=== PATIENT | male | born 1960 | race African-American/Black ===

== ENCOUNTER 2020-05-10 11:13 | Outpatient (REF) | payer OTHER, SELFPAY ==
--- NOTE | 2020-05-10 11:23 | XR_ITS ---
EXAMINATION: XR HIP, RIGHT CLINICAL INFORMATION: Pain COMPARISON: 11/10/2016 TECHNIQUE: Pelvis, AP view Right hip, 2 views FINDINGS: No new findings at the right hip compared to 11/10/2016. The femoral head is well-positioned within the intact acetabulum. There is chronic narrowing of superior joint space with subarticular sclerosis and osteophyte formation. A well-corticated ossicle is observed at the superolateral acetabulum. No evidence of acute fracture or osteonecrosis. Small enthesophytes at the right ischial tuberosity. The visualized right pelvic bones are intact. XR/XR hip RT w PEL1V IMPRESSION: Moderate osteoarthritis of the right hip remains similar in appearance compared to 11/10/2016.
[2020-05-10 12:36] LABS: MANUAL DIFF FLAG NO
[2020-05-10 12:44] LABS: Basophils Percent Auto 0.8 % (0-2); Eosinophils Absolute Auto 0.2 X10*3/uL (0.0-0.4); Eosinophils Percent Auto 3.9 % (0-4); Hematocrit 41.6 % (42-52); Hemoglobin 14.5 g/dl (14.0-18.0); Imm Gran Abs Auto 0.01 X10*3/uL (0.00-0.03); Imm Gran Pct Auto 0.2 % (0.0-0.4); Lymphocytes Absolute Auto 1.8 X10*3/uL (1.2-4.9); Lymphocytes Percent Auto 38.1 % (20-40); Mean Corpuscular HGB Conc 34.9 g/dl (31.0-36.0); Mean Platelet Volume 8.7 fL (9.4-12.4); Monocytes Absolute Auto 0.5 X10*3/uL (0.1-1.2); Monocytes Percent Auto 10.1 % (2-11); Neutrophils Absolute Auto 2.3 X10*3/uL (2.0-8.3); Neutrophils Percent Auto 46.9 % (45-73); Platelet Count 295 X10*3/uL (160-400); Red Blood Count 4.84 X10*6/uL (4.60-5.80); Red Cell Distribution Width 11.6 % (11.0-16.0); White Blood Count 4.8 X10*3/uL (4.8-10.8)
[2020-05-10 13:04] LABS: C Reactive Protein 0.38 mg/dL (< or = 0.50)
[2020-05-10 13:49] LABS: Anion Gap 13 (12-20); Blood Urea Nitrogen 14 mg/dL (9-16); Calcium 9.1 mg/dL (8.4-10.2); Carbon Dioxide 25 mmol/L (22-29); Chloride 104 mmol/L (96-108); Cholesterol 228 mg/dL; Estimated Glomerular Filt Rate > 60; Glucose Fasting 85 mg/dL (60-99); HDL Cholesterol 60 mg/dL; LDL Cholesterol Calculated 146 mg/dl; Potassium 4.4 mmol/l (3.3-5.1); Sodium 138 mmol/L (135-145); Triglycerides 113 mg/dL
[2020-05-11 09:07] LABS: Lyme Abs Screen <0.90 index
== END 2020-05-10 11:14 | disposition home or self-care (01) ==
LOC: HO.LAB 11:13
PROVIDERS: Absent Provider Nurse Practitioner Family; PCP Internal Medicine; Visit Provider Internal Medicine
DX: M54.5 Low back pain (principal)
CPT/HCPCS: 36415; 73502; 80048; 80061; 85025; 86140; 86618

== ENCOUNTER 2020-05-23 13:02 | Outpatient (REF) | payer OTHER, SELFPAY ==
--- NOTE | 2020-05-23 13:05 | US_ITS ---
EXAMINATION: US SCROTUM CLINICAL INFORMATION: Testicular pain. COMPARISON: None TECHNIQUE: A sonogram of the scrotum was performed assessing clayton-scale appearance and color Doppler flow. Spectral Doppler analysis of the arterial and venous flow were performed in the testes bilaterally. FINDINGS: RIGHT: Right testicle measures 4.7 x 2.3 x 3.0 cm, volume 17.0 mL. No focal testicular parenchymal lesions are visualized. Spectral Doppler analysis of the arterial and venous flow is increased in the right testis. Right epididymal head is normal in size. No right varicocele is seen. There is a small right hydrocele. Right epididymal Doppler flow is normal. In the anterior scrotal wall, there is a mobile isoechoic lesion with increased vascularity measuring 0.66 x 0.45 x 0.56 cm. LEFT: Left testicle measures 4.8 x 2.1 x 2.9 cm, volume 15.3 mL. No focal testicular parenchymal lesions are visualized. Spectral Doppler analysis of the arterial and venous flow is increased in the left testis. Left epididymal head is normal in size. There is a small epididymal tail cyst measuring 0.7 x 0.5 x 0.7 cm. There is a small left hydrocele. No left varicocele is seen. Left epididymal Doppler flow is normal. ADDITIONAL FINDINGS: None. US/US scrotum IMPRESSION: Bilateral hydroceles. Small left epididymal cyst. In the anterior scrotal wall, there is an isoechoic to hyperechoic lesion likely epididymal inclusion cyst, less likely leiomyoma. Mesenchymal tumors, hemangioma or lymphangioma are considered less likely.
== END 2020-05-23 13:03 | disposition home or self-care (01) ==
LOC: HO.HMGCX 13:02
PROVIDERS: PCP Internal Medicine; Visit Provider Internal Medicine
DX: N50.819 Testicular pain, unspecified (principal)
CPT/HCPCS: 76870

== ENCOUNTER → 2020-06-19 13:44 | Outpatient (BNVA) | payer OTHER, SELFPAY | PROVIDERS: PCP Internal Medicine; Visit Provider Orthopaedic Surgery ==

== ENCOUNTER 2020-08-06 14:34 | Outpatient (REF) | payer OTHER, SELFPAY ==
--- NOTE | 2020-08-06 15:29 | ECG_ITS ---
Test Reason : PREOP Blood Pressure : / mmHG Vent. Rate : 079 BPM Atrial Rate : 079 BPM P-R Int : 154 ms QRS Dur : 096 ms QT Int : 360 ms P-R-T Axes : 036 044 029 degrees QTc Int : 412 ms Normal sinus rhythm Normal ECG No previous ECGs available Referred By: Karla Chery Electronically Signed By:Diego Llanes
[2020-08-06 16:15] LABS: MANUAL DIFF FLAG NO
[2020-08-06 16:28] LABS: Basophils Absolute Auto 0.1 X10*3/uL (0.0-0.2); Basophils Percent Auto 0.9 % (0-2); Eosinophils Absolute Auto 0.2 X10*3/uL (0.0-0.4); Eosinophils Percent Auto 2.9 % (0-4); Hematocrit 40.4 % (42-52); Hemoglobin 14.1 g/dl (14.0-18.0); Imm Gran Abs Auto 0.01 X10*3/uL (0.00-0.03); Imm Gran Pct Auto 0.2 % (0.0-0.4); Lymphocytes Absolute Auto 1.9 X10*3/uL (1.2-4.9); Lymphocytes Percent Auto 28.5 % (20-40); Mean Corpuscular HGB Conc 34.9 g/dl (31.0-36.0); Mean Corpuscular Hemoglobin 29.7 pg (27.0-33.0); Mean Corpuscular Volume 85.2 fL (80-98); Mean Platelet Volume 8.7 fL (9.4-12.4); Monocytes Absolute Auto 0.7 X10*3/uL (0.1-1.2); Monocytes Percent Auto 10.5 % (2-11); Neutrophils Absolute Auto 3.8 X10*3/uL (2.0-8.3); Platelet Count 310 X10*3/uL (160-400); Red Blood Count 4.74 X10*6/uL (4.60-5.80); Red Cell Distribution Width 11.6 % (11.0-16.0); White Blood Count 6.6 X10*3/uL (4.8-10.8)
[2020-08-06 16:43] LABS: Anion Gap 13 (12-20); Blood Urea Nitrogen 19 mg/dL (9-16); Calcium 9.4 mg/dL (8.4-10.2); Carbon Dioxide 29 mmol/L (22-29); Chloride 105 mmol/L (96-108); Estimated Glomerular Filt Rate > 60; Glucose Random 92 mg/dL (60-115); Sodium 143 mmol/L (135-145)
== END 2020-08-06 14:35 | disposition home or self-care (01) ==
LOC: HO.LAB 14:34
PROVIDERS: PCP Internal Medicine; Visit Provider Orthopaedic Surgery
DX: Z01.810 Encounter for preprocedural cardiovascular examination (principal); Z01.812 Encounter for preprocedural laboratory examination
CPT/HCPCS: 36415; 80048; 85025; 93005

== ENCOUNTER → 2020-08-29 13:59 | Outpatient (BNVA) | payer OTHER, SELFPAY | PROVIDERS: PCP Internal Medicine; Visit Provider Physician Assistant ==

== ENCOUNTER 2020-09-03 09:44 | Inpatient (IN) | payer OTHER, SELFPAY ==
[2020-08-30 09:52] VITALS: BMI 32.4
[2020-08-30 10:12] VITALS: BP 170/105; PULSE 83; RESP 20; O2SAT 99
--- NOTE | 2020-08-30 10:22 | P.CONAN_ITS ---
Documented by User: Maribel Amadoney 08/30/20 10:42 HPI - Anesthesia Eval Consult details Narrative: 60yo M for Right Hip Total Replacement BP up at PAT. Pt states white coat sydrome and BP WNL when checking at home. (Repeat BP 166/96). Admits he has not been taking his Lisinopril 10mg daily regularly. Instructed to take today, Thursday, Thursday, and Thursday. Also, record BP checks at home and bring readings DOS. PCP cleared. [facility] Active Problems Active Problems: All Active Problems (Updated 08/29/20 @ 15:51 by Aliza Camargo) Rash and other nonspecific skin eruption (Acute) Testicle pain (Acute) Sciatica (Acute) Hip arthritis (Acute) Primary osteoarthritis of right hip (Acute) Pre-op evaluation (Acute) Lumbar back pain (Acute) Hypertension (Acute) Asthma (Acute) Past Medical History Medical History (Updated 08/29/20 @ 15:51 by Aliza Camargo) Arthritis Asthma History of back pain Hypertension Lumbar back pain Family History Family History Father No problems noted. Mother No problems noted. Family history of problems with anesthesia: No Surgical History Surgical History (Updated 08/29/20 @ 15:51 by Aliza Camargo) History of amputation of finger of left hand History of left hip replacement History of rectal polypectomy Hx of colonoscopy History of Problems with Anesthesia: No Social History Social History Are you a primary team primary care physician to a significant other at home: No Do you presently have visiting nurse or other home services: No Alcohol intake: never Smoking Status: Never smoker Use of substances other than those prescribed or required for medical reasons: No Have you been hit, kicked, punched, or otherwise hurt by someone within the past year? If so, by whom?: No Advance Directives: No Advance Directives Information Provided: No Advance Directives on File: No Recently lost weight without trying: No Narrative Narrative: No recent illness. 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 Meds Allergies Allergy/AdvReac Type Severity Reaction Status Date / Time No Known Allergies Allergy Verified 08/29/20 15:52 [No Known Allergies*] Home Medications Medication Instructions Recorded Confirmed Last Taken Type oxycodone 5 mg PO Q8H PRN 08/29/20 08/29/20 Unknown History lisinopril 10 mg PO DAILY 08/30/20 08/30/20 Unknown History Exam Exam Date and Time: August 30, 2020 1022 Height,Weight and Vital Signs: Height 5 ft 6 in Weight 91.172 kg Last Vital Signs Pulse 83 08/30/20 10:12 Resp 20 08/30/20 10:12 BP 170/105 H 08/30/20 10:12 Pulse Ox 99 08/30/20 10:12 Pertinent Lab Results Pertinent Lab Results: Laboratory Tests 08/06/20 08/06/20 15:48 15:48 WBC 6.6 Hgb 14.1 Hct 40.4 L Plt Count 310 Sodium 143 Potassium 4.0 Chloride 105 Carbon Dioxide 29 BUN 19 H Creatinine 0.89 Airway Mallampati Class: II TM Dist: >3cm Neck ROM: Full Loose/Missing/Broken Teeth: Yes (Top left molar temporary crown) Heart: RRR Lungs: CTAB Assessment and Plan Assessment Anesthesia Assessment: Anesthesia Plan Discussed (GA vs Spinal; Block) and PAT Visit Documented by User: Kemal Fernandez MD 09/03/20 11:32 [facility] Past Medical History Medical History (Updated 08/29/20 @ 15:51 by Aliza Camargo) Arthritis Asthma History of back pain Hypertension Lumbar back pain Family History Family History Father No problems noted. Mother No problems noted. Surgical History Surgical History (Updated 08/29/20 @ 15:51 by Aliza Camargo) History of amputation of finger of left hand History of left hip replacement History of rectal polypectomy Hx of colonoscopy Social History Social History Are you a primary team primary care physician to a significant other at home: No Do you presently have visiting nurse or other home services: No Alcohol intake: never Smoking Status: Never smoker Use of substances other than those prescribed or required for medical reasons: No Have you been hit, kicked, punched, or otherwise hurt by someone within the past year? If so, by whom?: No Advance Directives: No Advance Directives Information Provided: No Advance Directives on File: No Recently lost weight without trying: No Meds Allergies Allergy/AdvReac Type Severity Reaction Status Date / Time No Known Allergies Allergy Verified 08/29/20 15:52 [No Known Allergies*] Home Medications Medication Instructions Recorded Confirmed Last Taken Type oxycodone 5 mg PO Q8H PRN 08/29/20 08/29/20 Unknown History lisinopril 10 mg PO DAILY 08/30/20 08/30/20 Unknown History Assessment and Plan Assessment Anesthesia Assessment: Anesthesia Plan Discussed and Chart Reviewed Final Anesthetic Review NPO: Yes ASA Class: III Final Preanesthetic Review: No Changes in Pt Med Stat, Meds/Allgs Chart Reviewed, Consent Obtained/Reviewed and Anes Risks/Benef Reviewed Patient Risk: Intermediate Procedure Risk: Intermediate Anesthetic Plan Anesthetic Plan: MAC:, Spinal and Regional Block Disposition: Standard PACU
[2020-08-30 10:35] VITALS: BP 166/96; PULSE 82; O2SAT 99
[2020-08-30 12:41] LABS: MRSA Nasal PCR NEGATIVE (Negative); SA Nasal PCR POSITIVE (Negative)
[2020-09-03] VITALS (17 sets, daily range): BP systolic 116–201; BP diastolic 65–125; PULSE 54–84; RESP 14–20; TEMP 36.6–36.7; O2SAT 93–99
--- NOTE | ~2020-09-03 | XR_ITS ---
EXAMINATION: XR HIP, RIGHT CLINICAL INFORMATION: Postop COMPARISON: Previous x-ray May 2020 TECHNIQUE: Two views of the right hip and one view of the pelvis. FINDINGS: There is a new right hip replacement in satisfactory position. No fracture or dislocation is seen. There are postoperative changes to the soft tissues. There is a left hip replacement, left lateral femoral shaft sideplate and cerclage wires that appear unchanged. Bones of the lower pelvis are unremarkable. XR/XR hip RT w PEL1V IMPRESSION: Satisfactory appearance of right hip replacement.
--- NOTE | 2020-09-03 07:35 | MHC.SHP ---
Pre-Procedural Eval Section A The patient is an INPATIENT: No Changes since office visit: No Cold of Flu in the past 2 weeks, No New Medical Problems, No Changes in Medication and No Patient answered all questions The History & Physical has been completed within 30 days and I have reviewed it.: Yes Section B Chief Complaint: Primary Osteoarthritis of Right Hip Allergies: Allergies Allergy/AdvReac Type Severity Reaction Status Date / Time No Known Allergies Allergy Verified 08/29/20 15:52 [No Known Allergies*] Plan I have reviewed the history and physical and performed a pertinent physical examination on my patient. No changes have occurred unless specified.
[2020-09-03] MEDS: Gabapentin 600 MG TABLET PO (10:33)
[2020-09-03 10:52] LABS: COVID-19 Test Negative (Negative)
[2020-09-03] MEDS: Lactated Ringers 1,000 ML 100 ML IVCONT ×2 (11:10→15:31)
[2020-09-03] MEDS: HYDROmorphone HCl 0.5 MG/0.5 ML SYRINGE IVPUSH ×2 (14:35→15:19)
[2020-09-03] MEDS: oxyCODONE HCl Immed Release 5 MG TABLET 10 MG PO ×2 (14:42→21:54)
[2020-09-03] MEDS: ceFAZolin Sodium/Dextrose,Iso 2 GM/50 ML PIGGYBACK IV (17:48)
[2020-09-03] MEDS: Ketorolac Tromethamine 15 MG/ML VIAL IVPUSH (18:47)
--- NOTE | 2020-09-03 18:55 | PC.NURSE ---
patient offered dinner meal. ate dinner no complaints of nausea. no pain at this time. vss
[2020-09-03] MEDS: Cyclobenzaprine HCl 10 MG TABLET PO (21:53)
[2020-09-03] MEDS: Acetaminophen 325 MG TABLET 650 MG PO (21:54)
[2020-09-04] VITALS: BP 139/82; PULSE 83; RESP 20; TEMP 37.3; O2SAT 96
[2020-09-04] MEDS: Ketorolac Tromethamine 15 MG/ML VIAL IVPUSH ×3 (00:56→11:56)
[2020-09-04] MEDS: 0.9 % Sodium Chloride Flush 3 ML SYRINGE IVFLUSH ×2 (00:57→08:04)
[2020-09-04] MEDS: Lactated Ringers 1,000 ML 100 ML IVCONT (00:57)
[2020-09-04] MEDS: oxyCODONE HCl Immed Release 5 MG TABLET 10 MG PO ×2 (02:11→08:01)
[2020-09-04 03:47] VITALS: BP 125/77; PULSE 90; RESP 20; TEMP 37.4; O2SAT 95
[2020-09-04] MEDS: Acetaminophen 325 MG TABLET 650 MG PO ×2 (03:49→08:18)
[2020-09-04 06:22] LABS: Hematocrit 32.2 % (42-52); Hemoglobin 11.1 g/dl (14.0-18.0)
--- NOTE | 2020-09-04 06:32 | PM.IMCN ---
History of Present Illness Data of Consult Service Date: 09/03/20 Requesting physician: Karla Chery Primary Care Provider: Edgardo Humphries MD [facility] Reason for consult: Medical management This 60-year-old male with past medical history of asthma, hypertension who is postop LI, we are asked in consultation for medical management. Patient is lying in bed, comfortable, reports pain control, has no headache, change in vision, chest pain, shortness of breath, no abdominal pain nausea or vomiting. No diarrhea constipation, no urinary symptoms and no lower extremity edema. Has history of asthma that is well controlled, denies any shortness of breath, or wheezing. Has history of high blood pressure well controlled on medication. Vitals stable with no abnormality At this time patient has no acute complaints. Review of Systems Review of Systems: Yes all other systems are reviewed and are negative [facility] Medical History Arthritis Asthma History of back pain Hypertension Lumbar back pain Family History Father No problems noted. Mother No problems noted. Surgical History History of amputation of finger of left hand History of left hip replacement History of rectal polypectomy Hx of colonoscopy Social History Household Members: Other Household Members Other:: girlfriend Housing: House Are you a primary resident caregiver to a significant other at home: No Do you presently have visiting nurse or other home services: No Alcohol intake: never Smoking Status: Never smoker Use of substances other than those prescribed or required for medical reasons: No Currently Displaying Signs/Symptoms of Drug Intoxication Withdrawal: No Have you been hit, kicked, punched, or otherwise hurt by someone within the past year? If so, by whom?: No Do you feel safe in your current relationship?: Yes Is there a partner from a previous relationship who is making you feel unsafe now?: No Are you made to feel afraid or neglected: No Spiritual Healthcare Practices: anabaptism Advance Directives: No Advance Directives Information Provided: No Advance Directives on File: No Do you have thoughts of harming others: None Do you have a plan to hurt others: No Plan Recently lost weight without trying: No Meds Allergies Allergy/AdvReac Type Severity Reaction Status Date / Time No Known Allergies Allergy Verified 08/29/20 15:52 [No Known Allergies*] Active Medications: Current Medications Generic Name Dose Route Start Last Admin Trade Name Freq PRN Reason Stop Dose Admin Acetaminophen 650 mg 09/03/20 21:00 09/04/20 03:49 Acetaminophen 325 Mg Tablet PO 650 mg Q6H SHIMA Administration Albuterol Sulfate 2 puff 09/03/20 21:34 Albuterol Sulfate 90 Mcg 8 Gm Inhaler INHALE Q4H PRN shortness of breath Aspirin 325 mg 09/04/20 22:00 Aspirin 325 Mg Tablet PO BID SHIMA Cyclobenzaprine HCl 10 mg 09/03/20 21:45 09/03/20 21:53 Cyclobenzaprine Hcl 10 Mg Tablet PO 10 mg BEDTIME SHIMA Administration Hydromorphone HCl 0.5 mg 09/03/20 14:29 09/03/20 15:19 Hydromorphone Hcl 0.5 Mg/0.5 Ml Syringe IVPUSH 0.5 mg Q5M PRN Administration Pain, Severe (Pain Scale 7-10) Lactated Ringer's 1,000 mls @ 100 mls/hr 09/03/20 09:45 09/04/20 00:57 Lr IVCONT 100 mls/hr .Q10H SHIMA Administration Promethazine HCl 6.25 mg/ 50.25 mls @ 201 mls/hr 09/03/20 14:29 Sodium Chloride IV ONCE PRN Nausea and Vomiting Ketorolac Tromethamine 15 mg 09/04/20 00:00 09/04/20 06:31 Ketorolac Tromethamine 15 Mg/Ml Vial IVPUSH 15 mg Q6H SHIMA Administration Lisinopril 10 mg 09/04/20 09:00 Lisinopril 10 Mg Tablet PO DAILY SHIMA Protocol Morphine Sulfate 3 mg 09/03/20 17:42 Morphine Sulfate 4 Mg/Ml Cartridge IVPUSH Q2H PRN Pain, Severe (Pain Scale 7-10) Naloxone HCl 0.2 mg 09/03/20 17:42 Naloxone Hcl 0.4 Mg/Ml Vial IVPUSH Q2M PRN Excessive sedation or RR < 8 Ondansetron HCl 4 mg 09/03/20 14:29 Ondansetron Hcl 4 Mg/2 Ml Vial IVPUSH ONCE PRN Nausea and Vomiting Ondansetron HCl 4 mg 09/03/20 17:42 Ondansetron Hcl 4 Mg/2 Ml Vial IVPUSH Q8H PRN Nausea and Vomiting Oxycodone HCl 10 mg 09/03/20 21:00 09/04/20 02:11 Oxycodone Hcl Immed Release 5 Mg Tablet PO 10 mg Q6H SHIMA Administration Sodium Chloride 3 ml 09/03/20 17:42 09/04/20 00:57 0.9 % Sodium Chloride Flush 3 Ml Syringe IVFLUSH 3 ml QSHIFT SHIMA Administration Home Medications Medication Instructions Recorded Confirmed Last Taken Type oxycodone 5 mg PO Q8H PRN 08/29/20 08/29/20 Unknown History lisinopril 10 mg PO DAILY 08/30/20 08/30/20 Unknown History Physical Exam Vital Signs and Narrative: Vital Signs: Last Vital Signs Temp 99.4 F 09/04/20 03:47 Pulse 90 09/04/20 03:47 Resp 20 09/04/20 03:47 BP 125/77 09/04/20 03:47 Pulse Ox 95 09/04/20 03:47 Body Mass Index 32.4 Const: General: cooperative and no acute distress Orientation/consciousness: patient oriented x3 Eyes: General: appearance normal, both eyes and all related structures Resp: Effort & Inspection: normal respiratory effort and able to speak in complete sentences Cardio: Rate: regular rate Rhythm: regular rhythm GI: Palpation (GI): Soft to palpation Auscultation: normal bowel sounds Skin: General skin exam: no rashes or lesions noted Neuro: General: patient oriented x3 Cognition (Neuro): normal cognition Extrem: Other: His right have dressing General: Yes no pedal edema Results Labs CBC and Chem 7: 09/04/20 05:48 Labs: Laboratory Results - last 24 hr 09/03/20 10:22 COVID-19 ([facility]) Negative COVID-19 Clin Com See Note Assessment and Plan (1) Hip arthritis: Problem details: 20 min reviewing chart evaluating payient and documenting; referred to ortho Status: Acute (2) Primary osteoarthritis of right hip: Status: Acute (3) History of total right hip arthroplasty: Status: Acute This is a 6-year-old male with past medical history of asthma hypertension, arthritis status post total hip arthroplasty. Surgical team consulted us for medical management # status post total hip arthroplasty - management per surgical team # hypertension - stable - continue lisinopril # asthma - no exacerbation - continue p.r.n. inhaler DVT PPX: per surgical team Thank you for this consult Will sign off at this time for any further questions please do not hesitate to re-consult thank you
--- NOTE | 2020-09-04 07:41 | P.PNOP_ITS ---
Subjective Subjective Date of Service: 09/04/20 Interval history: POD:1 No overnight events Patient is: resting in bed, states his night was diff due to sleeping on his back. pain is tolerable Denies:cp,sob,dizziness Physical Exam Vital Signs: Vital Signs: Last Vital Signs Temp 99.4 F 09/04/20 03:47 Pulse 90 09/04/20 03:47 Resp 20 09/04/20 03:47 BP 125/77 09/04/20 03:47 Pulse Ox 95 09/04/20 03:47 Body Mass Index 32.4 Const: General: cooperative, healthy appearing and no acute distress Resp: Effort & Inspection: normal respiratory effort and able to speak in complete sentences Cardio: Rate: regular rate Peripheral pulses: Peripheral pulses 2+ throughout GI: Palpation (GI): Soft to palpation Skin: General skin exam: no rashes or lesions noted Extrem: Other: Right hip bandage clean, dry and intact. no erythema, mild edema. Progress Note: A&P Assessment and plan (1) History of total right hip replacement: Status: Acute Assessment and Plan: Continue pain mgmnt Begin asa dvt ppx begin PT for RT LI Dispo planning-Pending PT eval, pain mgmnt Fall Risk Details Current Medications: Current Medications Generic Name Dose Route Start Last Admin Trade Name Freq PRN Reason Stop Dose Admin Acetaminophen 650 mg 09/03/20 21:00 09/04/20 03:49 Acetaminophen 325 Mg Tablet PO 650 mg Q6H SHIMA Administration Albuterol Sulfate 2 puff 09/03/20 21:34 Albuterol Sulfate 90 Mcg 8 Gm Inhaler INHALE Q4H PRN shortness of breath Aspirin 325 mg 09/04/20 22:00 Aspirin 325 Mg Tablet PO BID SHIMA Cyclobenzaprine HCl 10 mg 09/03/20 21:45 09/03/20 21:53 Cyclobenzaprine Hcl 10 Mg Tablet PO 10 mg BEDTIME SHIMA Administration Hydromorphone HCl 0.5 mg 09/03/20 14:29 09/03/20 15:19 Hydromorphone Hcl 0.5 Mg/0.5 Ml Syringe IVPUSH 0.5 mg Q5M PRN Administration Pain, Severe (Pain Scale 7-10) Lactated Ringer's 1,000 mls @ 100 mls/hr 09/03/20 09:45 09/04/20 00:57 Lr IVCONT 100 mls/hr .Q10H SHIMA Administration Promethazine HCl 6.25 mg/ 50.25 mls @ 201 mls/hr 09/03/20 14:29 Sodium Chloride IV ONCE PRN Nausea and Vomiting Ketorolac Tromethamine 15 mg 09/04/20 00:00 09/04/20 06:31 Ketorolac Tromethamine 15 Mg/Ml Vial IVPUSH 15 mg Q6H SHIMA Administration Lisinopril 10 mg 09/04/20 09:00 Lisinopril 10 Mg Tablet PO DAILY [facility] Protocol Morphine Sulfate 3 mg 09/03/20 17:42 Morphine Sulfate 4 Mg/Ml Cartridge IVPUSH Q2H PRN Pain, Severe (Pain Scale 7-10) Naloxone HCl 0.2 mg 09/03/20 17:42 Naloxone Hcl 0.4 Mg/Ml Vial IVPUSH Q2M PRN Excessive sedation or RR < 8 Ondansetron HCl 4 mg 09/03/20 14:29 Ondansetron Hcl 4 Mg/2 Ml Vial IVPUSH ONCE PRN Nausea and Vomiting Ondansetron HCl 4 mg 09/03/20 17:42 Ondansetron Hcl 4 Mg/2 Ml Vial IVPUSH Q8H PRN Nausea and Vomiting Oxycodone HCl 10 mg 09/03/20 21:00 09/04/20 02:11 Oxycodone Hcl Immed Release 5 Mg Tablet PO 10 mg Q6H SHIMA Administration Sodium Chloride 3 ml 09/03/20 17:42 09/04/20 00:57 0.9 % Sodium Chloride Flush 3 Ml Syringe IVFLUSH 3 ml QSHIFT SHIMA Administration Time Spent With Patient Time: Total time spent is greater than 50% in coordination of care (as documented) at patient's floor/unit and/or counseling patient: Time with patient: less than 15 minutes
[2020-09-04 07:47] VITALS: BP 130/78; PULSE 95; RESP 18; TEMP 36.3; O2SAT 95
[2020-09-04 07:56] VITALS: BP 130/78; PULSE 95; O2SAT 95
--- NOTE | 2020-09-04 08:00 | P.DS_ITS ---
DS: Providers Provider Date of Service: 09/04/20 Date of admission: 09/03/20 09:44 Primary care physician: Edgardo Humphries MD Consults: 09/03/20 17:42 Consult to Hospitalist Routine Consulting Provider: Hospitalist Reason For Exam: medical issues DS: Diagnosis Discharge Diagnosis (1) History of total right hip replacement: Status: Acute Problem details: Mr. Johnson is a 60 yo male who presented to the office with ongoing right hip pain. He was found to have OA of the right hip and had failed all conservative treatment. He continued to have difficulty with ambulation and daily activities; therefore he consented to move forward with Right total hip arthroplasty. DS: Medications Discharge Medications Home Medications: Home Medications Medication Instructions Recorded Confirmed lisinopril 10 mg PO DAILY 08/30/20 08/30/20 Previous Rx's Medication Instructions Recorded cyclobenzaprine 10 mg tablet 10 mg PO BEDTIME #30 tab 04/10/20 albuterol sulfate 90 mcg/actuation 2 inh INHALATION Q4-6H PRN 30 Days 05/08/20 breath activated powder inhaler #1 ea fluticasone 500 mcg-salmeterol 50 1 ea PO BID #60 cap 08/18/20 mcg/dose blistr powdr for inhalation miscellaneous medical supply #1 ea 08/22/20 acetaminophen 650 mg PO Q6H 30 Days #240 tab 09/04/20 aspirin 325 mg PO BID 14 Days #28 tab 09/04/20 docusate sodium [Colace] 100 mg PO BID 30 Days #60 cap 09/04/20 oxycodone 5 mg PO Q6H 7 Days #28 tab 09/04/20 DS: Summary Hospital Course Hospital Course: The patient underwent a successful right total hip arthroplasty, they were transferred to PACU and then to the floor to recover. During their stay, their vitals were stable, afebrile at 99.4. Labs were unremarkable, H/H 11.6/35.2. POD 1 they were started on Aspirin 325mg po bid for DVT ppx, they also received Physical Therapy services twice a day. Prior to discharge, their dressing was intact, incision clean dry and intact, new Aquacel dressing applied and the plan was to be discharged home with VNA services. Time Spent with Patient Time attestation: Total time spent providing and/or coordinating discharge services: Discharge coordination time: Less than 30 minutes Physical Exam Vital Signs: Vital Signs: Last Vital Signs Temp 97.4 F 09/04/20 07:47 Pulse 95 09/04/20 07:47 Resp 18 09/04/20 07:47 BP 130/78 09/04/20 07:47 Pulse Ox 95 09/04/20 07:47 Body Mass Index 32.4 Const: General: cooperative, healthy appearing and no acute distress Resp: Effort & Inspection: normal respiratory effort and able to speak in complete sentences Cardio: Rate: regular rate Peripheral pulses: Peripheral pulses 2+ throughout GI: Palpation (GI): Soft to palpation Skin: Lesions: no lesions Rashes: no rashes Extrem: Other: Right hip no ecchymosis, redness, drainage. Aquacel is clean, dry, and intact. NVI. DS: Data Data Completed and Pending Pending studies at discharge: Pending at discharge 09/03/20 13:46 Surgical [PTH] Routine Labs on day of discharge: Laboratory Results - last 24 hr 09/03/20 09/04/20 10:22 05:48 Hgb 11.1 L D Hct 32.2 L D COVID-19 ([facility]) Negative COVID-19 Clin Com See Note Discharge Plan Discharge Patient Disposition: Home Health Service Referrals: Preeti Chaudhry PA-C [Physician [employer]] - (09/18/20 at 10:00am ) Karla Chery MD [Physician] - Discharge Medications: New acetaminophen 325 mg Tablet 650 mg PO Q6H 30 Days Qty: 240 RF: 0 aspirin 325 mg Tablet 325 mg PO BID 14 Days Qty: 28 RF: 0 oxycodone 5 mg Tablet 5 mg PO Q6H 7 Days Qty: 28 RF: 0 docusate sodium [Colace] 100 mg capsule 100 mg PO BID 30 Days Qty: 60 RF: 0 Continued cyclobenzaprine 10 mg tablet 10 mg PO BEDTIME Qty: 30 RF: 0 ProAir RespiClick 90 mcg/actuation aerosol powdr breath activated 2 inh inhalation Q4-6H PRN (Reason: shortness of breath) 30 Days Qty: 1 RF: 2 fluticasone propion-salmeterol 500-50 mcg/dose blister with device 1 ea PO BID Qty: 60 RF: 0 lisinopril 10 mg Tablet 10 mg PO DAILY RF: 0 (DME) Blood Pressure Cuff Misc See Rx Instructions .ROUTE .MEDSUPPLY Qty: 1 RF: 0 Discontinued oxycodone 5 mg tablet 5 mg PO Q8H PRN (Reason: Pain) RF: 0 Discharge Orders: Discharge Order (Routine); Ordered 09/04/20 Ordered By: Preeti Chaudhry Diet: regular diet Activity on Discharge: Use cane or walker Stand Alone Forms: Patient Portal Discharge page Care Plan Goals: restore fxn of right hip Health Concerns: none Plan of Treatment: Physical Therapy for total hip arthroplasty: no precautions, gait training, ROM, strength Limit stair climbing No showering, no tub bath-keep dressing clean, dry and intact No driving x6 weeks Continue Aspirin 325mg tabs twice a day x 4 weeks Follow up with [facility] [place] Orthopedics in 2 weeks
--- NOTE | 2020-09-04 08:04 | P.F2F_ITS ---
Service Date Service Date: 09/04/20 Encounter Date of encounter: 09/04/20 Reasons for Services Homebound: Leaving the home is medically contraindicated at this time without the asist of a device and/or another person due th the listed conditions above and below. Reason homebound: unsteady gait / fall risk, leg weakness, pain with ambulation, pain with transfers, poor balance / fall risk and unable to drive Homebound supporting statement: Pt. is considered homebound due to recent surgery. Unable to drive, poor balance, poor gait mechanics. Certification: Based on the above findings, I certify that this patient is confined to the home and needs intermittent chcf care, physical therapy and/or speech therapy, or continues to need occupational therapy. The patient is under my care, and I have initiated the establishment of the plan of care. The patient will be followed by a physician who will periodically review the plan of care.
[2020-09-04 08:16] VITALS: BP 130/65; PULSE 77
[2020-09-04] MEDS: lisinopriL 10 MG TABLET PO (08:16)
--- NOTE | 2020-09-04 08:43 | MHC.CM.PN ---
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 MET WITH PATIENT LIVES HOME ALONE WILL HAVE SIGNIFICANT STAY WITH HIM,HE IS EMPLOYED AND EXPECTS TO BE OUT OF WORK FOR ABOUT 6 WEEKS. HE HAS HAD A PREVIOUS HIP REPLACEMENT HIP IN THE PAST HE IS WILLING AND ACCEPTING TO HAVE THE [facility] FOR HOME PHYSICAL THERAPY DISCHARGE PLAN [facility] -HOME PHYSICAL THERAPY PCP DR POMPA ORTHOPEDIC SURGEON DR GUZMAN.
[2020-09-04 11:37] VITALS: BP 99/43; PULSE 64; RESP 18; TEMP 37.1; O2SAT 97
--- NOTE | 2020-09-04 12:41 | HO.PM.IMPN ---
Subjective Subjective Date of Service: 09/04/20 Interval History: pain controlled Cardiovascular Cardiovascular: Reports no additional cardiovascular complaints Gastrointestinal Gastrointestinal: Reports no additional gastrointestinal complaints Physical Exam Vital Signs: Vital Signs: Last Vital Signs Temp 98.8 F 09/04/20 11:37 Pulse 64 09/04/20 11:37 Resp 18 09/04/20 11:37 BP 99/43 L 09/04/20 11:37 Pulse Ox 97 09/04/20 11:37 Body Mass Index 32.4 Const General: cooperative, healthy appearing and no acute distress Resp Effort & Inspection: normal respiratory effort and able to speak in complete sentences Cardio Rate: regular rate Peripheral pulses: Peripheral pulses 2+ throughout GI Palpation (GI): Soft to palpation Skin Lesions: no lesions Rashes: no rashes Extrem Other: Right hip no ecchymosis, redness, drainage. Aquacel is clean, dry, and intact. NVI. Objective Data Current Medications Generic Name Dose Route Start Last Admin Trade Name Freq PRN Reason Stop Dose Admin Acetaminophen 650 mg 09/03/20 21:00 09/04/20 08:18 Acetaminophen 325 Mg Tablet PO 650 mg Q6H SHIMA Administration Albuterol Sulfate 2 puff 09/03/20 21:34 Albuterol Sulfate 90 Mcg 8 Gm Inhaler INHALE Q4H PRN shortness of breath Aspirin 325 mg 09/04/20 22:00 Aspirin 325 Mg Tablet PO BID SHIMA Cyclobenzaprine HCl 10 mg 09/03/20 21:45 09/03/20 21:53 Cyclobenzaprine Hcl 10 Mg Tablet PO 10 mg BEDTIME SHIMA Administration Hydromorphone HCl 0.5 mg 09/03/20 14:29 09/03/20 15:19 Hydromorphone Hcl 0.5 Mg/0.5 Ml Syringe IVPUSH 0.5 mg Q5M PRN Administration Pain, Severe (Pain Scale 7-10) Promethazine HCl 6.25 mg/ 50.25 mls @ 201 mls/hr 09/03/20 14:29 Sodium Chloride IV ONCE PRN Nausea and Vomiting Ketorolac Tromethamine 15 mg 09/04/20 00:00 09/04/20 11:56 Ketorolac Tromethamine 15 Mg/Ml Vial IVPUSH 15 mg Q6H SHIMA Administration Lisinopril 10 mg 09/04/20 09:00 09/04/20 08:16 Lisinopril 10 Mg Tablet PO 10 mg DAILY SHIMA Administration Protocol Morphine Sulfate 3 mg 09/03/20 17:42 Morphine Sulfate 4 Mg/Ml Cartridge IVPUSH Q2H PRN Pain, Severe (Pain Scale 7-10) Naloxone HCl 0.2 mg 09/03/20 17:42 Naloxone Hcl 0.4 Mg/Ml Vial IVPUSH Q2M PRN Excessive sedation or RR < 8 Ondansetron HCl 4 mg 09/03/20 14:29 Ondansetron Hcl 4 Mg/2 Ml Vial IVPUSH ONCE PRN Nausea and Vomiting Ondansetron HCl 4 mg 09/03/20 17:42 Ondansetron Hcl 4 Mg/2 Ml Vial IVPUSH Q8H PRN Nausea and Vomiting Oxycodone HCl 10 mg 09/03/20 21:00 09/04/20 08:01 Oxycodone Hcl Immed Release 5 Mg Tablet PO 10 mg Q6H SHIMA Administration Sodium Chloride 3 ml 09/03/20 17:42 09/04/20 08:04 0.9 % Sodium Chloride Flush 3 Ml Syringe IVFLUSH 3 ml QSHIFT SHIMA Administration Labs CBC & Chem 7: 09/04/20 05:48 Assessment and Plan (1) Hip arthritis: Status: Acute (2) Primary osteoarthritis of right hip: Status: Acute (3) History of total right hip arthroplasty: Status: Acute Assessment and Plan: 60M s/p total hip arthroplasty status post total hip arthroplasty - management per surgical team hypertension lisinopril asthma p.r.n. inhaler
--- NOTE | 2020-09-04 14:04 | HO.POSTANES ---
Post Anesthesia Evaluation Post Anesthesia Evaluation Vital Signs: Vital Signs Temp Pulse Resp BP Pulse Ox 09/04/20 11:37 98.8 F 64 18 99/43 L 97 09/04/20 08:16 77 130/65 09/04/20 07:56 95 130/78 95 09/04/20 07:47 97.4 F 95 18 130/78 95 09/04/20 03:47 99.4 F 90 20 125/77 95 Anesthesia: General Mental Status: Awake Pain Control: Satisfactory Nausea/Vomiting: None Hydration: Adequate Anesthesia-Related Issues: No Anes. Related Issues
--- NOTE | 2020-09-07 08:29 | W.PM.OPN ---
Operative Note Operative Note Date of Service: 09/03/20 Narrative: OPERATIVE PROCEDURE SURGEON: Dr Acosta([place]) Instrum DEPUTY EDITOR IN CHIEF: Amalia Alonso PAC PREOP DIAGNOSIS: Osteoarthritis right hip POSTOP DIAGNOSIS: Same OPERATIVE PROCEDURE: Right Total hip arthroplasty-[place] acrylate 2, size 5 x 127 degree femur, 50 mm tritanium acetabulum, 36 mm Biolox +5 head, 36 mm 0 degree liner CLINICAL NOTE: This very pleasant individual comes in today in regards to their right hip. That evidence of osteoarthritis. This failed operative management. Therefore after explaining the risks benefits and alternatives and answering all the questions it was mutually agreed upon to carry following procedure. OPERATIVE DETAILS Under a general anesthetic the patient was placed in the left lateral decubitus position. The leg was then prepped and draped in standard fashion. Surgical time-out was then performed. Patient is identified. Procedure confirmed. Site confirmed. Medical and allergy history was reviewed. Preoperative antibiotics were given. Standard DVT prophylaxis in place. Trans E make acid was given as well. All was discussed and agreed upon. Standard anterolateral approach to the hip was carried out. Hemostasis was achieved along the way at all points with electrocautery. This brought us down to the level of the fascia preston. This was divided along the length of the incision. The abductor musculature was identified. The anterior 2/3 were divided through tendon directly onto the greater trochanter. Muscle was then elevated off the capsule down to the level of the acetabulum. At this point a capsulectomy was then performed. The hip was then dislocated. Obvious evidence of osteoarthritis. The head and neck was then resected according to preoperative templating. We then turned our attention to the acetabulum. The remainder of the capsule and acetabular look labrum was removed. The soft tissue within the fovea was excised as well. The big bowl curette was used to remove any remaining cartilage. Starting with the 48 mm Reamer the acetabulum was sequentially reamed up to a size 50 mm. The trial acetabulum was placed at this point. It demonstrated appropriate fit fill and alignment. Therefore the 50 mm acetabulum was selected and brought up the table. The acetabulum was then thoroughly irrigated. The permanent component was brought up on the table. It was then Press-Fit into place with excellent fit and alignment. A trial liner for the 36 mm head was selected. It was placed and we turned our attention to the femur. Box osteotome was used to lateralize the canal. T Reamer was then used to sound the canal. The canal was then sequentially broached from a 0 to a size 5. It had excellent medial lateral fit and rotational stability. A trial reduction was then performed using the 127 degree collar and the 36 mm +5 head. The hip was reduced. It was placed through range of motion. It demonstrated excellent leg lengths. His leg lengths had been shorter on this side from previous surgery on the opposite hip. The increase length head was used in order to try to normalize the leg lengths. This did without any undue stiffness. Full range of motion. Stable in all positions. And therefore the Accolate 2, size 5 femoral component along with the 36 mm x 0 degree acetabular liner, and the 36 mm +5 head were selected and brought up to the table. The hip was redislocated. The trial components were then all removed. The acetabular was thoroughly irrigated. The permanent liner was tapped into place. Turning our attention back to the femur, it was thoroughly irrigated. The permanent component was brought up to the table. It was then tapped into place with the same fit and fill as the broach had been. The head was brought up. The Gray taper was cleaned and dried. The head tapped into place. Final reduction was then performed which again demonstrated excellent leg length is. Full range of motion. And excellent stability. Therefore proceeded closure. The wound was thoroughly irrigated. The abductor musculature was repaired with 2. Dexon. The fascia preston was closed with 2. Quill suture. The skin was approximated using interrupted 2-0 Dexon. The skin was then closed with rob. Sterile dressing was then applied. The patient then had the anesthesia reversed. They were transferred supine to the room bed then taken to recovery room in good condition. Intraoperatively a 2nd unit trans of mac acid was given. There was approximately 100 cc of blood loss. No intraop transfusions or complications.
== END 2020-09-04 13:15 | disposition home health service (06) | DRG 324 ==
LOC: HO.SSSA 12:55 → HO.S3 18:49
PROVIDERS: Physician Assistant; Admitting Provider Orthopaedic Surgery; PCP Internal Medicine; Visit Provider Orthopaedic Surgery
PROC: 0SR90JA Replacement of Right Hip Joint with Synthetic Substitute, Uncemented, Open Approach (ICD-10-PCS; CPT 27130; principal; 2020-09-03 12:50)
DX: M16.11 Unilateral primary osteoarthritis, right hip (principal); I10 Essential (primary) hypertension; J45.909 Unspecified asthma, uncomplicated; Z96.642 Presence of left artificial hip joint; Z79.52 Long term (current) use of systemic steroids; Z79.82 Long term (current) use of aspirin; Z79.899 Other long term (current) drug therapy
CPT/HCPCS: 27130; 36415; 73502; 85014; 85018; 86850; 86900; 87635; 87640; 87641; 88304; 88311; 97162; 97165; C1776; J0131; J0690; J1100; J1170; J1885; J2250; J2405; J3010

== ENCOUNTER → 2020-09-18 09:54 | Outpatient (BNVA) | payer OTHER, SELFPAY | PROVIDERS: Visit Provider Physician Assistant ==

== ENCOUNTER → 2020-10-10 10:26 | Outpatient (BNVA) | payer OTHER, SELFPAY | PROVIDERS: Visit Provider Orthopaedic Surgery ==

== ENCOUNTER → 2020-10-19 08:43 | Outpatient (BNVA) | payer SELFPAY | PROVIDERS: Visit Provider Physician Assistant | DX: Z02.79 Encounter for issue of other medical certificate (principal) ==

== ENCOUNTER → 2022-12-22 14:11 | Outpatient (BNVA) | payer SELFPAY | PROVIDERS: PCP Physician Assistant; Visit Provider Physician Assistant Medical | DX: Z02.79 Encounter for issue of other medical certificate (principal) ==

== ENCOUNTER 2023-09-15 13:31 | Outpatient (REF) | payer OTHER, SELFPAY ==
[2023-09-15 15:19] LABS: Creatinine Urine 180.27 mg/dL; Microalbum/Creatinine Ratio Ur 10.5 ug/mg cr (<30)
[2023-09-15 15:37] LABS: Alanine Aminotransferase 64 U/L (0-40); Albumin Level 4.5 g/dL (3.5-5.0); Alkaline Phosphatase 49 U/L (39-117); Anion Gap 13 (12-20); Aspartate Amino Transferase 41 U/L (5-37); Bilirubin Total 0.7 mg/dL (0.0-1.0); Blood Urea Nitrogen 19 mg/dL (9-16); Calcium 9.5 mg/dL (8.4-10.2); Carbon Dioxide 23 mmol/L (22-29); Chloride 107 mmol/L (96-108); Cholesterol 265 mg/dL (<200); Estimated Glomerular Filt Rate > 60; Glucose Fasting 97 mg/dL (60-99); HDL Cholesterol 55 mg/dL (>40); LDL Cholesterol Calculated 162 mg/dL (<100); Sodium 139 mmol/L (135-145); Triglycerides 244 mg/dL (<150)
[2023-09-15 16:46] LABS: Prostate Specific Antigen Scr 1.66 ng/mL (<0.05-4.0)
== END 2023-09-15 13:32 | disposition home or self-care (01) ==
LOC: HO.LAB 13:31
PROVIDERS: Visit Provider Physician Assistant
DX: Z12.5 Encounter for screening for malignant neoplasm of prostate (principal); E78.5 Hyperlipidemia, unspecified; I10 Essential (primary) hypertension
CPT/HCPCS: 36415; 80053; 80061; 82043; 82570; 84153

== ENCOUNTER 2023-11-11 13:32 | Outpatient (AMB) | payer OTHER, SELFPAY ==
[2023-11-11 13:33] VITALS: BP 152/92; PULSE 76; O2SAT 97; BMI 33.8
--- NOTE | 2023-11-11 13:33 | A.OFFPC_ITS ---
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: No Accompanied by: Self / Same As Patient Allergies No Known Allergies [No Known Allergies*] Allergy (Verified 11/11/23 13:45) Medication List - Last Reconciled 11/11/23 by Shane Mcnair PA-C acetaminophen 650 mg (2 x 325 mg) PO Q6H 30 days albuterol sulfate 90 mcg/actuation (Ventolin HFA) 1 inh inhalation QID PRN 30 days fluticasone propion-salmeterol 500-50 mcg/dose 1 ea PO BID 30 days lisinopril 10 mg PO DAILY 30 days miscellaneous medical supply (Blood Pressure Cuff) As directed Tobacco use date assessed: 11/11/23 Dental Screening Dental Screen Date: 11/11/23 Did you have a dental visit in the last 12 months?: Yes Did you have a dental problem in the last 6 months where you did not have access to dental care?: No Was dental information given to patient?: Patient has dentist HPI Annual PE 2 HPI0 Details Patient is a 63 year male here today for routine annual physical. .? Patient has a past medical history si gnificant for hypertension, asthma. concerns--> report having neck pain over the last 4 weeks. He reports he feels a lump in the posterior aspect of his neck he is concerned about. He feels he may have sprained a neck muscle after getting tooth pulled and may have tensed up . .. HTN :? Reports blood pressures at home have been stable. Blood pressure elevated today in office. He has not been very consistent with using lisinopril. Denies any chest discomfort, shortness of breath, headaches. .. Hyperlipidemia: Most recent labs showing elevated total cholesterol of 260 and LDL above 160. He admits to dietary indiscretion. Not interested in starting any statin cholesterol medication at this time would like to work extensively on lifestyle and dietary modifications. .. Asthma : has been stable with currently GUSTAVO inhaler? , also uses maintenance inhaler on a daily basis.? Denies any acute exacerbations of his asthma. Vaccines: Up-to-date with COVID vaccine, up-to-date with tetanus , needs shingles, need PCV- 20 Colorectal cancer screening: Done in December of 2019, tubular adenoma found repeat 5 years Laboratory Tests 06/27/19 07/05/19 05/10/20 17:50 08:55 11:52 Creatinine AST 91 H ALT 120 H Cholesterol 261 228 LDL Cholesterol, C alc 167 PSA Screen Urine Microalbumin 09/15/23 09/15/23 13:38 13:45 Creatinine 0.99 AST 41 H ALT 64 H Cholesterol 265 H LDL Cholesterol, C alc 162 H PSA Screen 1.66 Urine Microalbumin 19.0 [facility] Medical History Arthritis History of back pain Hip arthritis Lumbar back pain Hypertension Asthma Surgical History History of amputation of finger of left hand Hx of colonoscopy History of rectal polypectomy History of left hip replacement Family History (Updated 11/11/23 @ 13:53 by Shane Mcnair PA-C) Father Prostate cancer Mother No problems noted. Sister Melanoma Metastasis to brain Social History (Updated 11/11/23 @ 13:55 by Shane Mcnair PA-C) Household Members: Other Household Members Other:: girlfriend Housing: House Are you a primary resident care supervisor to a significant other at home: No Do you presently have visiting nurse or other home services: No Alcohol intake: current Alcohol intake frequency: 0-2 drinks per day Alcohol type: beer Comment: resting in bed, eyes closed Patient Tobacco Use Status: Never used Tobacco e-Cigarette/Vaping Use: Never Used service: No Current occupational status: employed Current occupation: [employer] Cognitive needs: No Hearing needs: No Vision needs: No Questionnaire PHQ-9 Over the last 2 weeks, how often have you been bothered by any of the following problems? 1. Little interest or pleasure in doing things: not at all 2. Feeling down, depressed, or hopeless: not at all 3. Trouble falling or staying asleep, or sleeping too much: not at all 4. Feeling tired or having little energy: not at all 5. Poor appetite or overeating: not at all 6. Feeling bad about yourself - or that you are a failure or have let yourself or your family down: not at all 7. Trouble concentrating on things, such as reading the newspaper or watching television: not at all 8. Moving or speaking so slowly that other people could have noticed. Or the opposite - being so fidgety or restless that you have been moving around a lot more than usual: not at all 9. Thoughts that you would be better off or of hurting yourself in some way: not at all Total score: 0 Depression Screening Interpretation: Negative Depression Screening Done: Yes 38207 - PHQ-9 Billing: Yes Source: Developed by Drs. Kurtis Joseph, Aundrea Quiroz, Gama Santos and colleagues, with an educational shayy from [employer]. Thrive Questionnaire Date Thrive assessed: 11/11/23 I am a: Patient What is your living situation today?: I have a steady place to live Within the past 12 months, did the food you bought not last and you didn't have the money to get more?: Never true Within the past 12 months, did you worry whether your food would run out before you got money to buy more?: Never true Do you have trouble paying for medicines?: No Do you have trouble getting transportation to medical appointments?: No Do you have trouble paying your heating and electricity bill?: No Do you have trouble taking care of your child, family member or friend?: No Do you have trouble with day-to-day activities such as bathing, preparing meals, shopping, managing finances, etc.?: No Are you currently unemployed and looking for a job?: No Are you interested in more education?: No Please select the resources that you would like help with: None Currently or been in a relationship where the following occur: no concerns reported and I choose not to answer this question THRIVE Score: 0 AUDIT C Alcohol Use Questionnaire (AUDIT-C) 1. How often do you have a drink containing alcohol?: 4 or more times a week 2. How many drinks containing alcohol do you have on a typical day when you are drinking?: 1 or 2 3. How often do you have six or more drinks on one occasion?: Never Total Score: 4 JAC-7 AMB Questionnaire JAC-7 Date JAC - 7 assessed: 11/11/23 Feeling nervous, anxious, or on edge: 0 = Not at all Not being able to stop or control worryin = Not at all Worrying too much about different things: 0 = Not at all Trouble relaxin = Not at all Being so restless that it is hard to sit still: 0 = Not at all Becoming easily annoyed or irritable: 0 = Not at all Feeling afraid as if something awful might happen: 0 = Not at all Total JAC-7 score (0-4 normal; 5-9 mild; 10-14 moderate; 15-21 severe): 0 Source: Developed by Drs. Kurtis Joseph, Aundrea Quiroz, Gama Santos and colleagues, with an educational shayy from [employer]. JAC-7 Assessment Billing JAC-7 Assessment Tool: JAC-7 Assessment 79219 ACT Questionnaire In the past 4 weeks, how much of the time did your asthma keep you from getting as much done at work, school or at home?: None of the time During the past 4 weeks, how often have you had shortness of breath?: Not at all During the past 4 weeks, how often did your asthma symptoms wake you up at night or earlier than usual in the morning?: Not at all During the past 4 weeks, how often have you had to use your rescue inhaler or nebulizer medication?: Not at all How would you rate your asthma control during the past 4 weeks?: Completely controlled ACT Interpretation: Negative Score: 25 Review of Systems Const Denies body aches, Denies chills, Denies excessive sweating, Denies fatigue, Denies fever(s) and Denies headache(s) Eyes Denies blurry vision ENT Denies dysphagia, Denies vertigo, Denies dizziness, Denies headache(s), Denies hearing loss and Denies tinnitus Card Denies chest pain, Denies chest pain with activity, Denies syncope, Denies irregular heart rhythm and Denies dyspnea Resp Denies chest congestion, Denies cough, Denies hemoptysis, Denies dyspnea and Denies wheezing GI Denies abdominal pain, Denies melena, Denies hematochezia, Denies coffee ground emesis, Denies dysphagia, Denies diarrhea, Denies nausea and Denies vomiting Denies difficulty urinating, Denies dysuria, Denies urinary frequency, Denies urinary hesitancy and Denies urinary urgency Musc Denies arthralgias, Denies limited range of motion, Denies muscle cramps and Denies muscle weakness Skin/Breast Denies rash and Denies skin ulcer Neuro Denies Abnormal speech present, Denies confusion, Denies vertigo, Denies dizziness, Denies syncope, Denies headache(s), Denies memory loss and Denies seizure-like activity Psych Denies anxiety, Denies confusion, Denies depression, Denies memory loss, Denies panic attacks and Denies paranoia Endo Denies excessive sweating, Denies fatigue, Denies flushing, Denies polydipsia and Denies polyuria Aller/Immun Denies wheezing Physical exam (Primary Care) Vital Signs: Last Vital Signs Pulse 76 11/11/23 13:33 BP 152/92 H 11/11/23 13:33 Pulse Ox 97 11/11/23 13:33 Oxygen Delivery Method Room Air 11/11/23 13:33 BMI result Body Mass Index 33.8 Tobacco/Smoking Status: Tobacco use Status Tobacco use date assessed 11/11/23 11/11/23 13:40 Patient Tobacco Use Status Never used Tobacco 11/11/23 13:55 e-Cigarette/Vaping Use Never Used 11/11/23 13:55 PHQ-9: PHQ-9 Score PHQ-9: Total score 0 11/11/23 13:40 Depression Screening Interpretation: Negative Thrive Assessment: Date of Thrive Assessment Date Thrive assessed 11/11/23 11/11/23 13:40 Currently or been in a relationship where the following occur: no concerns reported and I choose not to answer this question Const General: cooperative, comfortable, no acute distress, alert and awake; No confusion Orientation/consciousness: oriented to person, oriented to place, patient oriented x3 and No confusion HENMT Head: Yes normocephalic Ears: external ears normal and TM's normal bilaterally Face and sinus: No sinus tenderness Mouth: Normal oral and palatal mucosa present and tongue normal Teeth and gingiva: dentition normal and gingiva normal Throat: Yes posterior oropharynx normal, Yes tonsils normal and Yes uvula midline Eyes Conjunctivae: conjunctivae normal Sclerae: sclerae normal Pupils: Equal, round and reactive pupils present EOM: EOMs intact bilaterally Direct Ophthalmoscopy: No no photophobia Neck Neck: Yes no lymphadenopathy, No tender and Yes no JVD Thyroid: Thyroid normal Carotids: no bruits Neck images: 2 1. SMALL MOBILE ROPE-LIKE MASS OVER THE AREA OUTLINED. Chest Chest palpation & inspection: no tenderness Resp Effort & Inspection: normal respiratory effort, no audible wheezes, not labored and no stridor Auscultation: no crackles, no rales, no rhonchi and no wheezes Cardio Jugular venous distension: no JVD Rate: regular rate, not bradycardic and not tachycardic Rhythm: regular rhythm Bruits: no carotid bruits Peripheral pulses: Peripheral pulses 2+ throughout GI Inspection: Yes normal to inspection, No abdominal wall ecchymosis and No visible herniation Palpation (GI): Soft to palpation, nontender, no guarding, not rigid and No hepatosplenomegaly present Auscultation: normoactive bowel sounds General: Yes no CVA tenderness Back/Spine/Pelvis Back: no CVA tenderness and No back tenderness Cervical Spine: cervical ROM normal Thoracic/Lumbar Spine: thoracic and lumbar spine normal to inspection, straight leg raise negative bilaterally, No thoraco-lumbar ROM limited and No lumbar spinal tenderness Skin Lesions: no lesions Rashes: no rashes Wounds: no wounds Neuro General: oriented to person, oriented to place, patient oriented x3, CN's II-XI intact bilaterally and No confusion Cranial nerves: Yes Equal, round and reactive pupils present and Yes Normal accommodation reflex present Cognition (Neuro): normal cognition Speech: No Abnormal speech present Gait exam (Neuro): Normal gait present Motor exam (neuro): 5/5 motor strength present throughout Extrem Right upper extremity: full ROM; no cyanosis Left upper extremity: full ROM; no cyanosis Right lower extremity: no edema Left lower extremity: no edema Psych Appearance: grossly normal Mental Status: mental status grossly normal Affect: normal affect Attitude: cooperative Thought process: Normal thought process present Assessment and Plan Assessment & Plan (1) Annual physical exam: Code(s): Z00.00 - Encounter for general adult medical examination without abnormal findings (2) Hypertension: Comment: Dx 07/2019 Code(s): I10 - Essential (primary) hypertension Qualifiers: Hypertension type: essential hypertension Qualified Code(s): I10 - Essential (primary) hypertension Plan: Blood Pressures today elevated today in office. Has not been consistent with taking lisinopril. Does take his home blood pressures with a watch and reports normal readings. Advised to get brachial blood pressure cuff to do home blood pressure monitoring. Will continue him on his current dose of lisinopril per goal blood pressure to be below 140/90. (3) Asthma: Code(s): J45.909 - Unspecified asthma, uncomplicated Qualifiers: Asthma complication type: with acute exacerbation Asthma persistence: p ersistent Asthma severity: moderate Qualified Code(s): J45.41 - Moderate persistent asthma with (acute) exacerbation Plan: Patient reports his asthma has been very well controlled. Does use daily Advair and only p.r.n. use of his albuterol inhaler. Denies any nighttime awakenings with asthma symptoms. (4) Obese: Code(s): E66.9 - Obesity, unspecified Qualifiers: Body mass index: BMI 33.0-33.9 Obesity classification: adult class 1 (BMI 30 - 34.9) Obesity type: due to excess calories Serious obesity comorbidity presence: without serious comorbidity Qualified Code(s): E66.09 - Other obesity due to excess calories; Z68.33 - Body mass index [BMI] 33.0-33.9, adult Plan: Patient does understand his BMI is over 30 will work on being more physically active and at that and better eating habits to reduce his weight (5) Tubular adenoma of colon: Code(s): D12.6 - Benign neoplasm of colon, unspecified Plan: Colonoscopy done in 2019 tubular adenomatous polyp , repeat colonoscopy 5 years 2024 (6) HLD (hyperlipidemia): Code(s): E78.5 - Hyperlipidemia, unspecified Qualifiers: Hyperlipidemia type: pure hypercholesterolemia Qualified Code(s): E 78.00 - Pure hypercholesterolemia, unspecified Plan: Most recent fasting lipid panel showing elevated total cholesterol and LDL. We did discuss perhaps starting cholesterol medication though he would like to work on lifestyle and dietary modifications. Goal total cholesterol to be below 230 and LDL to be below 160. (7) Cervical myopathy: Code(s): G72.9 - Myopathy, unspecified Plan: Will supply patient with muscle relaxer to use on an as needed basis for his neck pain. (8) Mass in neck: Code(s): R22.1 - Localized swelling, mass and lump, neck Plan: Does have palpable posterior neck mass that is mobile, likely muscle strain. Will send for ultrasound to evaluate for any mass or reactive lymph node. Orders: Orders 2 Lipid Panel Today E78.00 - Pure hypercholesterolemia, unspecified Comprehensive [place]. Panel Fast Today E78.00 - Pure hypercholesterolemia, unspecified Complete Blood Count no Diff Today I10 - Essential (primary) hypertension US soft tiss head and/or neck Today R22.1 - Localized swelling, mass and lump, neck Medications: New 2 cyclobenzaprine 5 mg PO BEDTIME 15 tabs 0RF 15 days G72.9 - Myopathy, unspecified Refilled 2 albuterol sulfate 90 mcg/actuation (Ventolin HFA) 1 inh inhalation QID PRN 8.5 grams 3RF shortness of breath or wheezing 30 days J45.41 - Moderate persistent asthma with (acute) exacerbation fluticasone propion-salmeterol 500-50 mcg/dose 1 ea PO BID 60 caps 3RF 30 days J45.41 - Moderate persistent asthma with (acute) exacerbation Patient Instructions: Goal: Blood pressure to remain below 140/90, LDL to be below 160 Barrier: Adherence to physical activity and healthy eating habits Coding Level of Care Code Est Pt Prev Care 40-64y(49739) Diagnoses Annual physical exam Z00.00 Essential hypertension I10 Hypertension type: essential hypertension Moderate persistent asthma with acute exacerbation J45.41 Asthma complication type: with acute exacerbation Asthma persistence: persistent Asthma severity: moderate Class 1 obesity due to excess calories without serious comorbidity with body mass index (BMI) of 33.0 to 33.9 in adult E66.09; Z68.33 Body mass index: BMI 33.0-33.9 Obesity classification: adult class 1 (BMI 30 - 34.9) Obesity type: due to excess calories Serious obesity comorbidity presence: without serious comorbidity Tubular adenoma of colon D12.6 Pure hypercholesterolemia E78.00 Hyperlipidemia type: pure hypercholesterolemia Cervical myopathy G72.9 Mass in neck R22.1 Additional Codes AJC-7 Assessment Billing - JAC-7 Assessment Tool: JAC-7 Assessment [id number] ([id number])
== END 2023-11-11 14:21 | disposition home or self-care (01) ==
PROVIDERS: PCP Physician Assistant; Visit Provider Physician Assistant
DX: Z00.00 Encounter for general adult medical examination without abnormal findings (principal); I10 Essential (primary) hypertension; E66.09 Other obesity due to excess calories; Z68.33 Body mass index [BMI] 33.0-33.9, adult; J45.41 Moderate persistent asthma with (acute) exacerbation; D12.6 Benign neoplasm of colon, unspecified; E78.00 Pure hypercholesterolemia, unspecified; G72.9 Myopathy, unspecified; R22.1 Localized swelling, mass and lump, neck
CPT/HCPCS: 99396

== ENCOUNTER 2023-11-19 14:02 | Outpatient (REF) | payer OTHER, SELFPAY ==
--- NOTE | ~2023-11-19 | US_ITS ---
EXAMINATION: US SOFT TISSUE OF THE NECK CLINICAL INFORMATION: Localized swelling, mass and lump, neck. Patient states he initially noticed this area in the posterior left neck of localized swelling, mass and lump 2-3 weeks ago after dental procedure. Area was painful initially, but it has decreased in size. COMPARISON: None available. TECHNIQUE: Linear transducer grayscale and color Doppler examination of the posterior left neck. FINDINGS: Targeted ultrasound images were obtained by the poultry debeaker of the area of concern as indicated by the patient in the area of concern as indicated by the patient along the posterior left neck and demonstrated a 3.6 x 0.6 x 1.0 cm lesion with hypoechoic periphery and echogenic center and no internal vascularity, possibly representing an atypical lymph node. Radiologist was not in attendance. Images were later provided for interpretation. US/US soft tiss head and/or neck IMPRESSION: 3.6 cm lesion in the area of concern as indicated by the patient in the posterior left neck may represent an atypical lymph node. Correlation with clinical exam recommended to determine further management including possible additional imaging, treatment or biopsy. Recommend follow-up ultrasound in 1-3 months.
== END 2023-11-19 14:03 | disposition home or self-care (01) ==
LOC: HO.US 14:02
PROVIDERS: Visit Provider Physician Assistant
DX: R22.1 Localized swelling, mass and lump, neck (principal)
CPT/HCPCS: 76536

== ENCOUNTER 2023-12-21 15:27 | Outpatient (REF) | payer BC, SELFPAY ==
[2023-12-21 16:39] LABS: Hemoglobin 14.5 g/dl (14.0-18.0); Mean Corpuscular HGB Conc 35.4 g/dl (31.0-36.0); Mean Corpuscular Hemoglobin 30.7 pg (27.0-33.0); Mean Corpuscular Volume 86.7 fL (80.0-98.0); Mean Platelet Volume 8.8 fL (9.4-12.4); Platelet Count 268 X10*3/uL (160-400); Red Blood Count 4.73 X10*6/uL (4.60-5.80); Red Cell Distribution Width 11.5 % (11.0-16.0)
[2023-12-21 17:04] LABS: Alanine Aminotransferase 88 U/L (0-40); Albumin Level 4.6 g/dL (3.5-5.0); Alkaline Phosphatase 47 U/L (39-117); Anion Gap 13 (12-20); Aspartate Amino Transferase 61 U/L (5-37); Bilirubin Total 0.7 mg/dL (0.0-1.0); Blood Urea Nitrogen 21 mg/dL (9-16); Calcium 9.6 mg/dL (8.4-10.2); Carbon Dioxide 25 mmol/L (22-29); Chloride 107 mmol/L (96-108); Cholesterol 215 mg/dL (<200); Estimated Glomerular Filt Rate > 60; Glucose Fasting 80 mg/dL (60-99); Glucose Random 80 mg/dL (60-115); HDL Cholesterol 57 mg/dL (>40); LDL Cholesterol Calculated 140 mg/dL (<100); Potassium 4.1 mmol/L (3.3-5.1); Sodium 141 mmol/L (135-145); Total Protein 7.5 g/dL (6.5-8.0); Triglycerides 92 mg/dL (<150)
== END 2023-12-21 15:28 | disposition home or self-care (01) ==
LOC: HO.LAB 15:27
PROVIDERS: PCP Physician Assistant; Visit Provider Physician Assistant
DX: E78.00 Pure hypercholesterolemia, unspecified (principal); R22.1 Localized swelling, mass and lump, neck; I10 Essential (primary) hypertension
CPT/HCPCS: 36415; 80048; 80053; 80061; 85027

== ENCOUNTER 2023-12-24 11:10 | Outpatient (REF) | payer BC, SELFPAY ==
--- NOTE | ~2023-12-24 | CT_ITS ---
EXAMINATION: CT SOFT TISSUE NECK WITH CONTRAST CLINICAL INFORMATION: History of neck lump. Possible atypical lymph node or mass of the neck. COMPARISON: Ultrasound of soft tissues of the neck from 11/19/2023. TECHNIQUE: Following the intravenous administration of 60 mL of Omnipaque 350 intravenous contrast, helical imaging was performed in the axial plane with generation of coronal and sagittal reformatted images. This CT examination was performed using dose optimization techniques as appropriate, variously including the following: *Automated exposure control *Adjustment of mA and/or kV according to patient size (this includes techniques or standardized protocols for targeted exams where dose is matched to indication/reason for exam; i.e. extremities or head) *Use of iterative reconstruction technique DLP: 1006 mGy-cm FINDINGS: The parotid and centerless grinder tender spaces are normal. The submandibular glands and thyroid gland are normal. No evidence of soft tissue mass or focal inflammatory change in the deep compartments of the neck. The nasopharynx, oral cavity, tongue base, and tonsillar pillars are unremarkable. No contour abnormality or pathologic enhancement within the oral cavity or pharyngeal mucosal space. The parapharyngeal fat planes are preserved. The hypopharynx, epiglottis, and preepiglottic space are normal. Laryngeal structures normal. No fluid collections in the deep soft tissues. The visualized proximal esophagus is normal. Normal sized lymph nodes of the suprahyoid and infrahyoid neck without evidence of lymphadenopathy by size criteria. Specifically, no evidence of lymphadenopathy or soft tissue mass within the left posterior neck. Mild atherosclerosis of the aorta. The carotid and vertebral arteries are patent. Atherosclerotic plaque of carotid bulbs and proximal ICAs resulting in mild stenosis of the proximal right ICA and approximately 30-40% stenosis of the proximal left ICA. The visualized intracranial structures are normal. The facial bones are intact. There are no air-fluid levels within paranasal sinuses. Mild mucosal thickening of inferior maxillary sinuses and of some of the bilateral ethmoid air cells. Multilevel discovertebral degenerative change with osteophyte formation of the visualized spine. The disc degenerative change in the cervical spine is worst at C5-C6. The visualized upper lobes are unremarkable. CT/CT soft tissue neck w IV con IMPRESSION: No evidence of soft tissue mass, lymphadenopathy or abscess in the neck.
[2023-12-24] MEDS: iohexoL 350 MG/ML 100 ML INFUS..BTL IV (11:38)
== END 2023-12-24 11:11 | disposition home or self-care (01) ==
LOC: HO.CT 11:10
PROVIDERS: PCP Physician Assistant; Visit Provider Physician Assistant
DX: R22.1 Localized swelling, mass and lump, neck (principal)
CPT/HCPCS: 70491; Q9967

== ENCOUNTER 2023-12-28 15:48 | Outpatient (REF) | payer BC, SELFPAY ==
--- NOTE | ~2023-12-28 | US_ITS ---
EXAMINATION: US ABDOMEN COMPLETE CLINICAL INFORMATION: Elevated liver enzymes. COMPARISON: None available. TECHNIQUE: Real-time imaging of the abdominal viscera. Limited visualization due to bowel gas. FINDINGS: PANCREAS: Limited visualization of pancreatic tail and head. Imaged portion of pancreatic body is unremarkable. ABDOMINAL AORTA: Limited visualization. Possible focal areas of increased diameter of the [id number] portion of the abdominal aorta, difficult to evaluate due to limited visualization, measuring up to 2.9 cm in AP dimension. Dedicated CT scan recommended for further evaluation. INFERIOR VENA CAVA: Visualized portions are normal. LIVER: Increased hepatic parenchymal heterogeneity and echogenicity could be associated with hepatocellular disease/hepatic steatosis and substantially limits visualization. Hypoechoic areas within the right hepatic lobe adjacent to the gallbladder are characteristic of focal sparing within a fatty liver. Correlation with liver function tests and clinical exam recommended to determine further management. GALLBLADDER: No gallstones. No gallbladder wall thickening. COMMON BILE DUCT: Normal in caliber measuring 0.3 cm in diameter. RIGHT KIDNEY: Multiple echogenic foci may represent vascular calcifications, artifact or tiny nonobstructive renal calculi. No hydronephrosis. Limited visualization. The kidney measures 11.4 cm in maximum dimension. LEFT KIDNEY: Multiple tiny renal echogenic foci may represent vascular calcifications, artifact or tiny nonobstructive renal calculi. No hydronephrosis. Limited visualization. The kidney measures 11.5 cm in maximum dimension. SPLEEN: Normal. The spleen measures 0.7 cm in maximum dimension. FREE FLUID: None. US/US abdomen complete IMPRESSION: 1. Increased hepatic parenchymal heterogeneity and echogenicity could be associated with hepatocellular disease/hepatic steatosis and substantially limits visualization. Hypoechoic areas in the right hepatic lobe adjacent to the gallbladder are characteristic of focal sparing within a fatty liver. Correlation with liver function tests and clinical exam recommended to determine further management. 2. Multiple tiny renal echogenic foci may represent vascular calcifications, artifact or tiny nonobstructive renal calculi. No hydronephrosis. Limited visualization. 3. Possible focal areas of increased diameter of the [id number] portion of the abdominal aorta, difficult to evaluate due to limited visualization, measuring up to 2.9 cm in AP dimension. Dedicated CT scan recommended for further evaluation.
== END 2023-12-28 15:49 | disposition home or self-care (01) ==
LOC: HO.US 15:48
PROVIDERS: PCP Physician Assistant; Visit Provider Physician Assistant
DX: R74.8 Abnormal levels of other serum enzymes (principal)
CPT/HCPCS: 76700

== ENCOUNTER 2023-12-29 09:58 | Outpatient (AMB) | payer BC, SELFPAY ==
--- NOTE | 2023-12-29 09:25 | A.OFFPC_ITS ---
Intake Visit Reasons: Discuss results Clinical Pharmacy Coordinator Required: No Information Interpreted: non-clinical & clinical Try On Baster: Not Required per policy Accompanied by: Self / Same As Patient Allergies No Known Allergies [No Known Allergies*] Allergy (Verified 12/29/23 12:06) Medication List - Last Reconciled 12/29/23 by Shane Mcnair PA-C acetaminophen 650 mg (2 x 325 mg) PO Q6H 30 days albuterol sulfate 90 mcg/actuation (Ventolin HFA) 1 inh inhalation QID PRN 30 days albuterol sulfate 90 mcg/actuation (Ventolin HFA) 1 inh inhalation QID PRN 30 days cyclobenzaprine 5 mg PO BEDTIME 15 days fluticasone propion-salmeterol 500-50 mcg/dose 1 ea PO BID 30 days fluticasone propion-salmeterol 500-50 mcg/dose 1 ea PO BID 30 days lisinopril 10 mg PO DAILY 30 days miscellaneous medical supply (Blood Pressure Cuff) As directed oxycodone 5 mg PO BID PRN 4 days Tobacco use date assessed: 11/11/23 Dental Screening Dental Screen Date: 11/11/23 HPI Discuss results HPI Details Patient is a 63-year-old male being evaluated today via telephone only. He wanted goal for results of his neck CT scan. Fortunately did not show any masses, abscesses or concerning lymphadenopathy. He reports neck pain has been getting better with muscle relaxers. Also most recent labs showing continued elevated liver enzymes thus was sent for ultrasound of his abdomen evaluate fatty liver. Awaiting results. He does admit to having 3 or 4 beers per day Has been trying to reduce his fatty foods. We did review his fasting lipid panel which is much improved since he has implemented dietary and lifestyle modifications. [facility] Medical History Arthritis History of back pain Hip arthritis Lumbar back pain Hypertension Asthma Surgical History History of amputation of finger of left hand Hx of colonoscopy History of rectal polypectomy History of left hip replacement Family History Father Prostate cancer Mother No problems noted. Sister Melanoma Metastasis to brain Social History Household Members: Other Household Members Other:: girlfriend Housing: House Are you a primary child day care teacher to a significant other at home: No Do you presently have visiting nurse or other home services: No Alcohol intake: current Alcohol intake frequency: 0-2 drinks per day Alcohol type: beer Comment: resting in bed, eyes closed Patient Tobacco Use Status: Never used Tobacco e-Cigarette/Vaping Use: Never Used service: No Current occupational status: employed Current occupation: [email or web address] Cognitive needs: No Hearing needs: No Vision needs: No Questionnaire Thrive Questionnaire Date Thrive assessed: 11/11/23 JAC-7 AMB Questionnaire JAC-7 Date JAC - 7 assessed: 11/11/23 Source: Developed by Drs. Kurtis Joseph, Aundrea Quiroz, Gama Santos and colleagues, with an educational shayy from [employer]. Review of Systems Const Denies headache(s) Eyes Denies loss of vision ENT Denies vertigo, Denies dizziness, Denies headache(s) and Denies sore throat Card Denies chest pain, Denies leg edema and Denies lightheadedness Resp Denies cough, Denies hemoptysis and Denies wheezing GI Denies abdominal pain, Denies melena, Denies constipation, Denies diarrhea and D enies vomiting Denies dysuria, Denies urinary frequency and Denies urinary urgency Musc Denies arthralgias, Denies joint swelling, Denies numbness and Denies tingling Neuro Denies behavioral changes, Denies vertigo, Denies dizziness, Denies headache(s), Denies loss of vision, Denies memory loss, Denies numbness and Denies tingling Psych Denies anxiety, Denies behavioral changes, Denies depression, Denies memory loss and Denies panic attacks Jt/Lymph Denies easy bleeding and Denies easy bruising Aller/Immun Denies wheezing Physical exam (Primary Care) Tobacco/Smoking Status: Tobacco use Status Tobacco use date assessed 11/11/23 12/29/23 09:27 Patient Tobacco Use Status Never used Tobacco 12/29/23 09:27 e-Cigarette/Vaping Use Never Used 12/29/23 09:27 Thrive Assessment: Date of Thrive Assessment Date Thrive assessed 11/11/23 12/29/23 09:27 Telehealth Telehealth Telehealth Platform: Telephone Location of provider rendering services: practice address Location of patient: address on file Patient Identification confirmed using: Name, : Yes Telehealth method: voice only Patient verbally consented to treatment: Yes Patient verbally consented to billing insurance company: Yes Patient informed of any privacy concerns related to visit: Yes Minutes spent on Phone/Video with Pt.: 11 Assessment and Plan Assessment & Plan (1) Mass in neck: Code(s): R22.1 - Localized swelling, mass and lump, neck Plan: As per HPI (2) Cervical myopathy: Code(s): G72.9 - Myopathy, unspecified Plan: Patient reports his neck pain has been getting better with home stretches and use of a muscle relaxer. Again CT of neck without any notable masses or lymphadenopathy (3) Elevated liver enzymes: Code(s): R74.8 - Abnormal levels of other serum enzymes Plan: Patient does admit to drinking on a daily basis which may be contributing to his elevated liver enzymes. Has ultrasound of his abdomen that is pending results. (4) HLD (hyperlipidemia): Code(s): E78.5 - Hyperlipidemia, unspecified Qualifiers: Hyperlipidemia type: pure hypercholesterolemia Qualified Code(s): E78.00 - Pure hypercholesterolemia, unspecified Plan: Patient's most recent fasting lipid panel much improved. Has been working on lifestyle and dietary modifications. Goal total cholesterol to be below 200, goal LDL to be below 160 Medications: New oxycodone Partial Fill upon patient request. 5 mg PO BID 4 days PRN 8 tabs 0RF pain G72.9 - Myopathy, unspecified Refilled cyclobenzaprine 5 mg PO BEDTIME 15 days 15 tabs 0RF G72.9 - Myopathy, unspecified fluticasone propion-salmeterol 500-50 mcg/dose 1 ea PO BID 30 days 60 caps 3RF J45.41 - Moderate persistent asthma with (acute) exacerbation albuterol sulfate 90 mcg/actuation (Ventolin HFA) 1 inh inhalation QID 30 days PRN 8.5 grams 3RF shortness of breath or wheezing J45.41 - Moderate persistent asthma with (acute) exacerbation Coding Level of Care Code Tele Est Pt Level 4 (74404) Diagnoses Mass in neck R22.1 Cervical myopathy G72.9 Elevated liver enzymes R74.8 Pure hypercholesterolemia E78.00 Hyperlipidemia type: pure hypercholesterolemia
== END 2023-12-29 12:49 | disposition home or self-care (01) ==
LOC: HO.HMGH 09:58
PROVIDERS: PCP Physician Assistant; Visit Provider Physician Assistant
DX: R22.1 Localized swelling, mass and lump, neck (principal); G72.9 Myopathy, unspecified; R74.8 Abnormal levels of other serum enzymes; E78.00 Pure hypercholesterolemia, unspecified
CPT/HCPCS: 99442

== ENCOUNTER 2024-05-23 14:09 | Outpatient (AMB) | payer BC, SELFPAY ==
[2024-05-23 14:53] VITALS: BP 162/90; PULSE 82; O2SAT 96; BMI 34.9
--- NOTE | 2024-05-23 14:53 | A.OFFPC_ITS ---
Vital Signs 3 05/23/24 14:53 Height 5 ft 5 in Weight 210 lb BMI 34.9 BP 162/90 H Blood Pressure Location Lt brachial Position Sitting Pulse 82 Pulse Source Pulse Oximeter Pulse Oximetry (%) 96 Oxygen Delivery Method Room Air Intake Visit Reasons: 6mof\u Chicken Cleaner Required: No Accompanied by: Self / Same As Patient Allergies No Known Allergies [No Known Allergies*] Allergy (Verified 05/23/24 15:04) Medication List - Last Reconciled 05/23/24 by Shane Mcnair PA-C acetaminophen 650 mg (2 x 325 mg) PO Q6H 30 days albuterol sulfate 90 mcg/actuation (Ventolin HFA) 1 inh inhalation QID PRN 30 days cyclobenzaprine 5 mg PO BEDTIME 15 days fluticasone propion-salmeterol 500-50 mcg/dose 1 ea PO BID 30 days lisinopril 10 mg PO DAILY 30 days miscellaneous medical supply (Blood Pressure Cuff) As directed oxycodone 5 mg PO BID PRN 4 days Tobacco use date assessed: 05/23/24 Fall risk assessment: No Falls in past year Last assessed Fall Risk: 05/23/24 Dental Screening Dental Screen Date: 11/11/23 HPI 6mof\u 2 HPI0 Details Patient is a 64-year-old male here today for follow-up visit .? Patient has a past medical history si gnificant for hypertension, asthma. concerns--> has developed dry skin over his hands that has been very itchy. Does not use any moisturizers or ointments to the state. .. HTN : Patient's blood pressures elevated today in office, at home he monitors his blood pressure to which he gets 110s to 120 systolic. He believes he has a white coat hypertension . He has not been very consistent with using lisinopril. Denies any chest discomfort, shortness of breath, headaches. .. Hyperlipidemia: Patient's most recent lipid panel showing improved total cholesterol. Has been dietary changes to reduce high cholesterol foods in his diet. .. Obesity: Has gained weight since last office visit and he does admit to dietary indiscretion and sedentary lifestyle. He will work on being more physically active and adapting to better eating habits to reduce his weight .. Laboratory Tests 09/15/23 12/21/23 13:45 15:41 AST 41 H 61 H ALT 88 H Cholesterol 265 H 215 H LDL Cholesterol, C alc 162 H 140 H PFSH Medical History Arthritis History of back pain Hip arthritis Lumbar back pain Hypertension Asthma Surgical History History of amputation of finger of left hand Hx of colonoscopy History of rectal polypectomy History of left hip replacement Family History Father Prostate cancer Mother No problems noted. Sister Melanoma Metastasis to brain Social History Household Members: Other Household Members Other:: girlfriend Housing: House Are you a primary youth career specialist to a significant other at home: No Do you presently have visiting nurse or other home services: No Alcohol intake: current Alcohol intake frequency: 0-2 drinks per day Alcohol type: beer Comment: resting in bed, eyes closed Patient Tobacco Use Status: Never used Tobacco e-Cigarette/Vaping Use: Never Used service: No Current occupational status: employed Current occupation: [employer] Cognitive needs: No Hearing needs: No Vision needs: No Questionnaire Thrive Questionnaire Date Thrive assessed: 11/11/23 AUDIT C Alcohol Use Questionnaire (AUDIT-C) 2. How many drinks containing alcohol do you have on a typical day when you are drinking?: 1 or 2 3. How often do you have six or more drinks on one occasion?: Weekly Total Score: 3 JAC-7 AMB Questionnaire JAC-7 Date JAC - 7 assessed: 11/11/23 Source: Developed by Drs. Kurtis Joseph, Aundrea Quiroz, Gama Santos and colleagues, with an educational shayy from [employer]. Review of Systems Const Denies headache(s) Eyes Denies loss of vision ENT Denies vertigo, Denies dizziness, Denies headache(s) and Denies sore throat Card Denies chest pain, Denies leg edema and Denies lightheadedness Resp Denies cough, Denies hemoptysis and Denies wheezing GI Denies abdominal pain, Denies melena, Denies constipation, Denies diarrhea and Denies vomiting Denies dysuria, Denies urinary frequency and Denies urinary urgency Musc Denies arthralgias, Denies joint swelling, Denies numbness and Denies tingling Neuro Denies Abnormal speech present, Denies behavioral changes, Denies vertigo, Denies dizziness, Denies headache(s), Denies loss of vision, Denies memory loss, Denies numbness and Denies tingling Psych Denies anxiety, Denies behavioral changes, Denies depression, Denies memory loss and Denies panic attacks Jt/Lymph Denies easy bleeding and Denies easy bruising Aller/Immun Denies wheezing Physical exam (Primary Care) Vital Signs: Last Vital Signs Pulse 82 05/23/24 14:53 BP 162/90 H 05/23/24 14:53 Pulse Ox 96 05/23/24 14:53 Oxygen Delivery Method Room Air 05/23/24 14:53 BMI result Body Mass Index 34.9 BMI Assessment/Plan discussion: High BMI High, discussed plan: lifestyle, weight reduction, dietary and physical activity Tobacco/Smoking Status: Tobacco use Status Tobacco use date assessed 05/23/24 05/23/24 14:54 Patient Tobacco Use Status Never used Tobacco 05/23/24 14:54 e-Cigarette/Vaping Use Never Used 05/23/24 14:54 Thrive Assessment: Date of Thrive Assessment Date Thrive assessed 11/11/23 05/23/24 14:54 Const General: healthy appearing, no acute distress, alert and awake Nutritional Appearance: well nourished Orientation/consciousness: oriented to person, oriented to place and oriented to time HENMT Ears: TM's normal bilaterally General nose exam: Normal nasal mucous membranes and turbinates present Eyes Conjunctivae: conjunctivae normal Sclerae: sclerae normal Pupils: Equal, round and reactive pupils present Neck Neck: Yes no lymphadenopathy and Yes no JVD Thyroid: Thyroid normal Carotids: no bruits Neck images: 2 1. PALPABLE ROPE-LIKE MOBILE SUBCUTANEOUS MASS NOTED IN THE AREA OUTLINED. Resp Effort & Inspection: normal respiratory effort and not tachypneic Auscultation: no crackles, no rales, no rhonchi and no wheezes Cardio Rate: regular rate Rhythm: regular rhythm Heart sounds: no murmurs and normal S1 and S2 GI Palpation (GI): Soft to palpation, nontender, no hepatomegaly and no splenomegaly Auscultation: normal bowel sounds Skin General skin exam: no rashes or lesions noted and dry skin Neuro General: oriented to person, oriented to place and oriented to time Cranial nerves: Yes Equal, round and reactive pupils present Speech: No Abnormal speech present Gait exam (Neuro): Normal gait present Motor exam (neuro): no tremor noted Extrem Right upper extremity: full ROM Left upper extremity: full ROM Hand/finger images: 2 1. VERY DRY IRRITATED SKIN OVER THE AREA OUTLINED ON THE HAND. Right lower extremity: full ROM; no edema Left lower extremity: full ROM; no edema Psych Mental Status: mental status grossly normal Speech and movement: Normal speech and movement present Affect: normal affect Attitude: cooperative Thought process: Normal thought process present Coding Level of Care Code Est Pt Level 4 (21951) Diagnoses Essential hypertension I10 Hypertension type: essential hypertension Cervical myopathy G72.9 Pure hypercholesterolemia E78.00 Hyperlipidemia type: pure hypercholesterolemia Class 1 obesity E66.811 Dermatitis L30.9 Assessment & Plan Assessment & Plan (1) Hypertension: Comment: Dx 07/2019 Code(s): I10 - Essential (primary) hypertension Category: Medical Qualifiers: Hypertension type: essential hypertension Qualified Code(s): I10 - Essential (primary) hypertension Plan: Patient's blood pressure elevated today in office. He reports his blood pressures usually elevated at office visits though at home blood pressures are 110-120 systolic. He reports he is not usually taking his lisinopril. Goal blood pressures to remain below 140/90 (2) Cervical myopathy: Code(s): G72.9 - Myopathy, unspecified Category: Medical Plan: Patient reports he still has some tightness and intermittent pain in his cervical spine. He does have a worry about a palpable mass noted at the posterior aspect of his neck. Has gotten CT of soft tissue of his neck though no significant findings. Ultrasound of the area did show concern for atypical lymph node. (3) HLD (hyperlipidemia): Code(s): E78.5 - Hyperlipidemia, unspecified Category: Medical Qualifiers: Hyperlipidemia type: pure hypercholesterolemia Qualified Code(s): E 78.00 - Pure hypercholesterolemia, unspecified Plan: Patient's most recent lipid panel showing improved total cholesterol and LDL. He is not interested in any medication for his cholesterol will work on lifestyle and dietary modifications. Goal LDL is to remain below 130 (4) Class 1 obesity: Code(s): E66.811 - Obesity, class 1 Category: Medical Plan: Patient does understand his BMI is over 30 will work on being more physically active and adapting to better eating habits to reduce his weight. (5) Dermatitis: Code(s): L30.9 - Dermatitis, unspecified Category: Medical Plan: Has developed dry skin and dermatitis over his hands usually during the winter. Will supply patient with a topical steroid ointment to use on the affected areas on his hands. Orders: Orders 2 Lipid Panel 05/23/24 E78.00 - Pure hypercholesterolemia, unspecified Microalbumin, Random (w Creat) 05/23/24 I10 - Essential (primary) hypertension Complete Blood Count no Diff 05/23/24 I10 - Essential (primary) hypertension Comprehensive [place]. Panel Fast 05/23/24 I10 - Essential (primary) hypertension Prostate Specific Antigen Scr 05/23/24 I10 - Essential (primary) hypertension, Z12.5 - Encounter for screening for malignant neoplasm of prostate Medications: New 2 triamcinolone acetonide 0.5% 1 appl topical DAILY 15 grams 0RF 15 days L30.9 - Dermatitis, unspecified Changed 2 From lisinopril 10 mg PO DAILY 30 days 30 tabs 3RF I10 - Essential (primary) hypertension To lisinopril 10 mg PO DAILY 90 tabs 1RF 90 days I10 - Essential (primary) hypertension Discontinued 2 cyclobenzaprine Discontinued Reason: Doctor's Order 5 mg PO BEDTIME 15 days 15 tabs 0RF G72.9 - Myopathy, unspecified oxycodone Partial Fill upon patient request. Discontinued Reason: Doctor's Order 5 mg PO BID 4 days PRN 8 tabs 0RF pain G72.9 - Myopathy, unspecified
== END 2024-05-23 15:23 | disposition home or self-care (01) ==
PROVIDERS: PCP Physician Assistant; Visit Provider Physician Assistant
DX: I10 Essential (primary) hypertension (principal); E66.811 Obesity, class 1; Z68.34 Body mass index [BMI] 34.0-34.9, adult; G72.9 Myopathy, unspecified; E78.00 Pure hypercholesterolemia, unspecified; L30.9 Dermatitis, unspecified

== ENCOUNTER → 2024-05-23 14:09 | Outpatient (BNVA) | payer BC, SELFPAY | PROVIDERS: PCP Physician Assistant; Visit Provider Physician Assistant ==

== ENCOUNTER 2024-11-19 09:18 | Outpatient (REF) | payer OTHER, SELFPAY ==
--- OUTSIDE RECORDS SUMMARY | 2024-11-19 09:21 | XMS_ITS | Data Portability ---
Author Organization [place] [facility], Allergy Address [address] [place] [id number] Care Team Providers Care Music Supervisor Name Role Phone MACARIO SCHWARZ Primary Care Provider [phone] MACARIO SCHWARZ Referring Provider [phone] Assessment Encounter Date Assessment Date Assessment LastModified by Organization Details LastModified Time 01/20/2024 01/20/2024 Patient appears to have a cervical muscle spasm. Things have improved somewhat with massage and warm compresses. I could feel a little spasm in the muscle. Massage seem to improve it. I have suggested warm compresses, massage and stretching. He also notes history of hearing difficulties and significant history with noise exposure. 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 For many years he did not use hearing protection. He notes some bilateral tinnitus but no vertigo. Suggest observation and annual audiometric testing. [email or web address] Not available 01/20/2024 16:46:25 Plan of Treatment Reminders Order Date Submit Date Provider Last Modified By Organization Details Last Modified Time Details Appointments None record ed. Lab None record ed. Referral None record ed. Procedures None record ed. Surgeries None record ed. Imaging None record ed. Medication Orders None record ed. Patient TargetsNo targets recorded. Patient InstructionsNo instructions recorded. Reason for Referral None Reported. Results Created Date Observation Date Name Description Value Unit Range Abnormal Flag Note LastModifiedBy Organization Detail LastModifiedTime 12/31/1912/24/2023 CT, neck, soft tissu e, w/ contr ast No observ ation record ed. [email or web address] Not Available 06/2023 08:55:29 01/21/20 audio gram No observ ation record ed. [email or web address] Not Available 12/31 16:06:21 Result Notes None recorded. Problems Name Problem SNOMED Code Status Onset Date Resolution Date Notes Provider Name and Address Organization Details Recorded Time Muscle spasm of cervical muscle of neck 466859233653 Active 2023 DEBBY LEWIS MD [address] [facility], [place], [phone], [facility] - [facility] 4 16:12:46 Finding of sensation of musculoskel etal structure of neck 842598676 Active 2023 DEBBY LEWIS MD [address] [facility], [place], [phone], [facility] - [facility] [place] 4 16:12:52 Sensorineur al hearing loss of bilateral ears 079987741 Active 2023 Elizabeth harman [place] - [facility] [place] 16:32:32 Problem Notes None recorded. Procedures Surgical History Date Name Laterality Status Provider Name and Address Organization Details Recorded Time Comp Audio with Tymps - 65679 & 68097 completed Elizabeth Jaramillo [place] - [facility] [place] 01/20/2024 16:32:18 total replacement of hip completed Isaac Tejeda [place] - [facility] [place] 01/20/2024 16:01:19 Imaging Results None recorded. Procedure Notes None recorded. Medical Equipment None Reported. Medications Name Sig Start Date Stop Date Status Note LastModified by Organization Details LastModified Time amoxicillin 500 mg capsule active Not Available Not Available Not Available acetaminophe n 300 mg-codeine 30 mg tablet active Not Available Not Available Not Available oxycodone-ac etaminophen 5 mg-325 mg tablet TAKE 1 TABLET EVERY 4 TO 6 HOURS NEEDED active Not Available Not Available No t Available amoxicillin 875 mg tablet 01/19 completed Not Available Not Available Not Available lisinopril 10 mg tablet active Not Available Not Available Not Available fluticasone 500 mcg-salmeter ol 50 mcg/dose blistr powdr for inhalation active Not Available Not Available N ot Available ibuprofen 600 mg tablet TAKE 1 TABLET BY MOUTH EVERY 4 TO 6 HOURS NEEDED active Not Available Not Available No t Available albuterol sulfate HFA 90 mcg/actuatio n aerosol inhaler active Not Available Not Available Not Available oxycodone 5 mg tablet 01/19 completed Not Available Not Available Not Available cyclobenzapr ine 5 mg tablet active Not Available Not Available Not Available chlorhexidin e gluconate 0.12 % mouthwash SWISH AND SPIT 15 ML IN THE MORNING AND IN THE EVENING FOR 2 WEEKS active Not Available Not Available No t Available Vitals Date Recorded Body height Body mass index (BMI) Body weight Provider Name and Address Organization Details Last Updated DateTime 01/20/2024 165.1 cm 32.4 kg/m2 60569.51 g Isaac Tejeda [place] - [facility] 01/20/2024 16:05:05 Social History None recorded. Functional Status None recorded. Mental Status None recorded. Family History Nothing Reported. Medical History Condition Response Hypertension Y Past Encounters Encounter ID Performer Location Encounter Start Date Encounter Closed Date Diagnosis/Indication Diagnosis SNOMED-CT Code Diagnosis ICD10 Code Diagnosis Note [id number] DEBBY DORMAN MD [facility] [address] [phone] 01/20/2024 15:38:41 01/20/2024 16:43:19 Finding of sensation of musculoskeletal structure of neck 735270616 M54.2 Muscle spa sm of cervical muscle of neck 8493083518 04 M62.838 Sensorineu ral hearing loss of bilateral ears 202567074 H90.3 Audiologic al evaluation results: Right ear: Normal sloping to a moderate sensorineu ral hearing loss with excellent word recognitio n. Left ear: Normal sloping to a moderate sensorineu ral hearing loss with excellent word recognitio n.Asymmetr ic SNHL at 3kHz of 25dB, worst in the right. Tympanomet ry: Right Ear:Type A Left Ear:Type A Health Concerns Section Related Observation LastModified by Organization Detai ls LastModified Time None Recorded Concern Status LastModified by Organization Details LastModified Time None Recorded Advance Directives Directive None Recorded Payers Insurance Date Sequence Insurance Name Policy Number Policy [place] Covered Member ID [place] Member ID Guarantor Name 07/14/2024 1 [facility] [id number] Sharon Johnson [id number] Christoph FlowersKatianaal Notes Date Note Type Note Provider Name and Address Organization Details Recorded Time 01/20/2024 text/html Patient reports 6 weeks ago he was having a dental procedure and he was quite tense in the chair due to the lack of enough anesthesia. Since then he has noticed a cord in the left posterior neck. His PCP ordered a CT of the neck with contrast at [facility]. The report is normal. He points to an area between the trapezius and the occipital muscles. Otherwise he is doing wellNo eating, drinking or swallowing issues He notes HL and some difficulty in background situations. NO tinnitus DEBBY MARLOW MD [address] [place] [address], [phone], [place] - [facility] 01/20/2024 16:47:25
[2024-11-19 10:06] LABS: Hemoglobin 14.8 g/dl (14.0-18.0); Mean Corpuscular HGB Conc 34.4 g/dl (31.0-36.0); Mean Corpuscular Hemoglobin 29.5 pg (27.0-33.0); Mean Corpuscular Volume 85.7 fL (80.0-98.0); Mean Platelet Volume 8.4 fL (9.4-12.4); Platelet Count 252 X10*3/uL (160-400); Red Blood Count 5.02 X10*6/uL (4.60-5.80); Red Cell Distribution Width 11.8 % (11.0-16.0); White Blood Count 4.7 X10*3/uL (4.8-10.8)
[2024-11-19 10:42] LABS: Alanine Aminotransferase 70 U/L (0-40); Albumin Level 4.4 g/dL (3.5-5.0); Alkaline Phosphatase 44 U/L (39-117); Anion Gap 9 (12-20); Aspartate Amino Transferase 46 U/L (5-37); Bilirubin Total 0.7 mg/dL (0.0-1.0); Blood Urea Nitrogen 18 mg/dL (9-16); Calcium 9.3 mg/dL (8.4-10.2); Carbon Dioxide 27 mmol/L (22-29); Chloride 108 mmol/L (96-108); Cholesterol 238 mg/dL (<200); Estimated Glomerular Filt Rate > 60; Glucose Fasting 107 mg/dL (60-99); HDL Cholesterol 49 mg/dL (>40); LDL Cholesterol Calculated 157 mg/dL (<100); Sodium 140 mmol/L (135-145); Total Protein 7.2 g/dL (6.5-8.0); Triglycerides 164 mg/dL (<150)
[2024-11-19 10:44] LABS: Creatinine Urine 172.98 mg/dL
[2024-11-19 11:06] LABS: Prostate Specific Antigen Scr 2.71 ng/mL (<0.05-4.0)
== END 2024-11-19 09:19 | disposition home or self-care (01) ==
LOC: HO.LAB 09:18
PROVIDERS: PCP Physician Assistant; Visit Provider Physician Assistant
DX: Z12.5 Encounter for screening for malignant neoplasm of prostate (principal); I10 Essential (primary) hypertension; E78.00 Pure hypercholesterolemia, unspecified
CPT/HCPCS: 36415; 80053; 80061; 82043; 82570; 84153; 85027

== ENCOUNTER 2024-11-21 14:34 | Outpatient (AMB) | payer BC, SELFPAY ==
[2024-11-21 14:38] VITALS: BP 152/88; PULSE 73; TEMP 36.3; O2SAT 96; BMI 34.1
--- NOTE | 2024-11-21 14:38 | A.OFFPC_ITS ---
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 Accompanied by: Self / Same As Patient Allergies No Known Allergies (No Known Allergies*) Allergy (Verified 11/21/24 14:49) Medication List - Last Reconciled 11/21/24 by Shane Mcnair PA-C acetaminophen 650 mg (2 x 325 mg) PO Q6H 30 days albuterol sulfate 90 mcg/actuation (Ventolin HFA) 1 inh inhalation QID PRN 30 days fluticasone propion-salmeterol 500-50 mcg/dose 1 ea PO BID 30 days lisinopril 10 mg PO DAILY 90 days miscellaneous medical supply (Blood Pressure Cuff) As directed triamcinolone acetonide 0.5% 1 appl topical DAILY 15 days Tobacco use date assessed: 11/21/24 Fall risk assessment: No Falls in past year Last assessed Fall Risk: 11/21/24 Dental Screening Dental Screen Date: 11/21/24 Did you have a dental visit in the last 12 months?: Yes Did you have a dental problem in the last 6 months where you did not have access to dental care?: No Was dental information given to patient?: Patient has dentist HPI Annual exam HPI Details Patient is a 64-year-old male here today for routine annual physical .? Patient has a past medical history si gnificant for hypertension, asthma. concerns--> he does report having a sinus Will she noted on dental x-rays, he is interested in seeing a ENT for evaluation of his sinus issues. .. Asthma : has been stable with currently GUSTAVO inhaler? , he also does use DuoNeb in his nebulizer at home which significantly reduced his shortness of breath and wheeze at times.. also uses maintenance inhaler on a daily basis.? Denies any acute exacerbations of his asthma. .. HTN : Patient's blood pressures elevated today in office, at home he monitors his blood pressure to which he gets 110s to 120 systolic. He believes he has a white coat hypertension . He has not been very consistent with using lisinopril. Denies any chest discomfort, shortness of breath, headaches. .. Hyperlipidemia: Patient's most recent lipid panel showing elevated total cholesterol and LDL. He is not interested in starting cholesterol medication at this time and will like to continue working on lifestyle and dietary modifications. Has been dietary changes to reduce high cholesterol foods in his diet. .. Class 1 Obesity: He has lost a few lb since last office visit, he reports being more physically active and being mindful about his diet lately. He will work on being more physically active and adapting to better eating habits to reduce his weight Vaccines: Up-to-date with COVID vaccine, up-to-date with tetanus , needs shingles, need PCV- 20- declines today Colorectal cancer screening: Done in December of 2019, tubular adenoma found repeat 5 years [facility] Medical History Arthritis History of back pain Hip arthritis Lumbar back pain Hypertension Asthma Surgical History History of amputation of finger of left hand Hx of colonoscopy History of rectal polypectomy History of left hip replacement Family History Father Prostate cancer Mother No problems noted. Sister Melanoma Metastasis to brain Social History Household Members: Other Household Members Other:: girlfriend Housing: House Are you a primary clinical care coordinator to a significant other at home: No Do you presently have visiting nurse or other home services: No Alcohol intake: current Alcohol intake frequency: 0-2 drinks per day Alcohol type: beer Comment: resting in bed, eyes closed Patient Tobacco Use Status: Never used Tobacco e-Cigarette/Vaping Use: Never Used service: No Current occupational status: employed Current occupation: [employer] Cognitive needs: No Hearing needs: No Vision needs: No Questionnaire PHQ-9 Over the last 2 weeks, how often have you been bothered by any of the following problems? 1. Little interest or pleasure in doing things: not at all 2. Feeling down, depressed, or hopeless: not at all 3. Trouble falling or staying asleep, or sleeping too much: not at all 4. Feeling tired or having little energy: not at all 5. Poor appetite or overeating: not at all 6. Feeling bad about yourself - or that you are a failure or have let yourself or your family down: not at all 7. Trouble concentrating on things, such as reading the newspaper or watching television: not at all 8. Moving or speaking so slowly that other people could have noticed. Or the opposite - being so fidgety or restless that you have been moving around a lot more than usual: not at all 9. Thoughts that you would be better off or of hurting yourself in some way: not at all Total score: 0 Depression Screening Interpretation: Negative Depression Screening Done: Yes 31648 - PHQ-9 Billing: Yes Source: Developed by Drs. Kurtis Joseph, Aundrea Quiroz, Gmaa Santos and colleagues, with an educational shayy from [employer]. Thrive Questionnaire Date Thrive assessed: 11/21/24 I am a: Patient What is your living situation today?: I have a steady place to live Within the past 12 months, did the food you bought not last and you didn't have the money to get more?: Never true Within the past 12 months, did you worry whether your food would run out before you got money to buy more?: Never true Do you have trouble paying for medicines?: No Do you have trouble getting transportation to medical appointments?: No Do you have trouble paying your heating and electricity bill?: No Do you have trouble taking care of your child, family member or friend?: Yes Do you have trouble with day-to-day activities such as bathing, preparing meals, shopping, managing finances, etc.?: No Are you currently unemployed and looking for a job?: No Are you interested in more education?: No Please select the resources that you would like help with: None Currently or been in a relationship where the following occur: No concerns reported THRIVE Score: 0 AUDIT C Alcohol Use Questionnaire (AUDIT-C) 1. How often do you have a drink containing alcohol?: 2-3 times a week 2. How many drinks containing alcohol do you have on a typical day when you are drinking?: 1 or 2 3. How often do you have six or more drinks on one occasion?: Never Total Score: 3 JAC-7 AMB Questionnaire JAC-7 Date JAC - 7 assessed: 11/21/24 Feeling nervous, anxious, or on edge: 0 = Not at all Not being able to stop or control worryin = Not at all Worrying too much about different things: 0 = Not at all Trouble relaxin = Not at all Being so restless that it is hard to sit still: 0 = Not at all Becoming easily annoyed or irritable: 0 = Not at all Feeling afraid as if something awful might happen: 0 = Not at all Total JAC-7 score (0-4 normal; 5-9 mild; 10-14 moderate; 15-21 severe): 0 Source: Developed by Drs. Kurtis Joseph, Aundrea Quiroz, Gama Santos and colleagues, with an educational shayy from [employer]. JAC-7 Assessment Billing JAC-7 Assessment Tool: JAC-7 Assessment 41388 ACT Questionnaire In the past 4 weeks, how much of the time did your asthma keep you from getting as much done at work, school or at home?: None of the time During the past 4 weeks, how often have you had shortness of breath?: Not at all During the past 4 weeks, how often did your asthma symptoms wake you up at night or earlier than usual in the morning?: Once or twice per week During the past 4 weeks, how often have you had to use your rescue inhaler or nebulizer medication?: Not at all How would you rate your asthma control during the past 4 weeks?: Well controlled ACT Interpretation: Negative Score: 23 Review of Systems Const Denies body aches, Denies chills, Denies excessive sweating, Denies fatigue, Denies fever(s) and Denies headache(s) Eyes Denies blurry vision ENT Denies dysphagia, Denies vertigo, Denies dizziness, Denies headache(s), Denies hearing loss and Denies tinnitus Card Denies chest pain, Denies chest pain with activity, Denies syncope, Denies irregular heart rhythm and Denies dyspnea Resp Denies chest congestion, Denies cough, Denies hemoptysis, Denies dyspnea and Denies wheezing GI Denies abdominal pain, Denies melena, Denies hematochezia, Denies coffee ground emesis, Denies dysphagia, Denies diarrhea, Denies nausea and Denies vomiting Denies difficulty urinating, Denies dysuria, Denies urinary frequency, Denies urinary hesitancy and Denies urinary urgency Musc Denies arthralgias, Denies limited range of motion, Denies muscle cramps and Denies muscle weakness Skin/Breast Denies rash and Denies skin ulcer Neuro Denies Abnormal speech present, Denies confusion, Denies vertigo, Denies dizziness, Denies syncope, Denies headache(s), Denies memory loss and Denies seizure-like activity Psych Denies anxiety, Denies confusion, Denies depression, Denies memory loss, Denies panic attacks and Denies paranoia Endo Denies excessive sweating, Denies fatigue, Denies flushing, Denies polydipsia and Denies polyuria Aller/Immun Denies wheezing Physical exam (Primary Care) Vital Signs: Last Vital Signs Temp 97.3 F 11/21/24 14:38 Pulse 73 11/21/24 14:38 BP 152/88 H 11/21/24 14:38 Pulse Ox 96 11/21/24 14:38 Oxygen Delivery Method Room Air 11/21/24 14:38 BMI result Body Mass Index 34.1 BMI Assessment/Plan discussion: High BMI High, discussed plan: lifestyle, weight reduction, dietary and physical activity Tobacco/Smoking Status: Tobacco use Status Tobacco use date assessed 11/21/24 11/21/24 14:51 Patient Tobacco Use Status Never used Tobacco 11/21/24 14:43 e-Cigarette/Vaping Use Never Used 11/21/24 14:43 PHQ-9: PHQ-9 Score PHQ-9: Total score 0 11/21/24 14:53 Depression Screening Interpretation: Negative Thrive Assessment: Date of Thrive Assessment Date Thrive assessed 11/21/24 11/21/24 14:51 Currently or been in a relationship where the following occur: No concerns reported Const General: cooperative, comfortable, no acute distress, alert and awake; No confusion Orientation/consciousness: oriented to person, oriented to place, patient oriented x3 and No confusion HENMT Head: Yes normocephalic Ears: external ears normal and TM's normal bilaterally Face and sinus: No sinus tenderness Mouth: Normal oral and palatal mucosa present and tongue normal Teeth and gingiva: dentition normal and gingiva normal Throat: Yes posterior oropharynx normal, Yes tonsils normal and Yes uvula midline Eyes Conjunctivae: conjunctivae normal Sclerae: sclerae normal Pupils: Equal, round and reactive pupils present EOM: EOMs intact bilaterally Direct Ophthalmoscopy: No no photophobia Neck Neck: Yes no lymphadenopathy, No tender and Yes no JVD Thyroid: Thyroid normal Carotids: no bruits Chest Chest palpation & inspection: no tenderness Resp Effort & Inspection: normal respiratory effort, no audible wheezes, not labored and no stridor Auscultation: no crackles, no rales, no rhonchi and no wheezes Cardio Jugular venous distension: no JVD Rate: regular rate, not bradycardic and not tachycardic Rhythm: regular rhythm Bruits: no carotid bruits Peripheral pulses: Peripheral pulses 2+ throughout GI Inspection: Yes normal to inspection, No abdominal wall ecchymosis and No visible herniation Palpation (GI): Soft to palpation, nontender, no guarding, not rigid and No hepatosplenomegaly present Auscultation: normoactive bowel sounds General: Yes no CVA tenderness Back/Spine/Pelvis Back: no CVA tenderness and No back tenderness Cervical Spine: cervical ROM normal Thoracic/Lumbar Spine: thoracic and lumbar spine normal to inspection, straight leg raise negative bilaterally, No thoraco-lumbar ROM limited and No lumbar spinal tenderness Skin Lesions: no lesions Rashes: no rashes Wounds: no wounds Neuro General: oriented to person, oriented to place, patient oriented x3, CN's II-XI intact bilaterally and No confusion Cranial nerves: Yes Equal, round and reactive pupils present and Yes Normal accommodation reflex present Cognition (Neuro): normal cognition Speech: No Abnormal speech present Gait exam (Neuro): Normal gait present Motor exam (neuro): 5/5 motor strength present throughout Extrem Right upper extremity: full ROM; no cyanosis Left upper extremity: full ROM; no cyanosis Right lower extremity: no edema Left lower extremity: no edema Psych Appearance: grossly normal Mental Status: mental status grossly normal Affect: normal affect Attitude: cooperative Thought process: Normal thought process present Coding Level of Care Code Est Pt Prev Care 40-64y(58546) Diagnoses Annual physical exam Z00.00 Frontal sinusitis, unspecified chronicity J32.1 Chronicity: unspecified Sinusitis location: frontal Pure hypercholesterolemia E78.00 Hyperlipidemia type: pure hypercholesterolemia Tubular adenoma of colon D12.6 Moderate persistent asthma with acute exacerbation J45.41 Asthma severity: moderate Asthma persistence: persistent Asthma complication type: with acute exacerbation Class 1 obesity E66.811 Additional Codes JAC-7 Assessment Billing - JAC-7 Assessment Tool: JAC-7 Assessment 21136 ([id number]) PHQ-9 - 89395 - PHQ-9 Billing: Yes ([id number]) Asthma Control Questionnaire - ACT Interpretation: Negative ([id number]) Assessment & Plan Assessment & Plan (1) Annual physical exam: Code(s): Z00.00 - Encounter for general adult medical examination without abnormal findings Category: Medical Plan: As per HPI (2) Sinusitis: Code(s): J32.9 - Chronic sinusitis, unspecified Category: Medical Qualifiers: Chronicity: unspecified Sinusitis location: frontal Qualified Code(s): J32.1 - Chronic frontal sinusitis Plan: Patient reporting sinus issues noted on x-rays from his dentist. He was advised to see an ENT specialist before he was able to get dental procedures done. (3) HLD (hyperlipidemia): Code(s): E78.5 - Hyperlipidemia, unspecified Category: Medical Qualifiers: Hyperlipidemia type: pure hypercholesterolemia Qualified Code(s): E78.00 - Pure hypercholesterolemia, unspecified Plan: Patient continues to have elevated total cholesterol and LDL. He works on [employer] and dietary modifications at this time. Advised on starting low-dose statin therapy to reduce his cardiovascular risk though he declines at this time. Goal LDL to be below 130 (4) Tubular adenoma of colon: Code(s): D12.6 - Benign neoplasm of colon, unspecified Category: Medical Plan: Patient has a history of colon polyps in 2020, needs repeat colonoscopy (5) Asthma: Code(s): J45.909 - Unspecified asthma, uncomplicated Category: Medical Qualifiers: Asthma severity: moderate Asthma persistence: persistent Asthma complication type: with acute exacerbation Qualified Code(s): J45.41 - Moderate persistent asthma with (acute) exacerbation Plan: Patient reports his asthma is fairly well controlled. He does report his asthma does act up during very cold or very high weather. He does have nebulizer at home he uses a DuoNeb solution for which does reduce a lot of his shortness of breath and wheeze. (6) Class 1 obesity: Code(s): E66.811 - Obesity, class 1 Category: Medical Plan: Patient does understand his BMI is over 30 will continue working on being more physically active and adapting to better eating habits to reduce his weight Orders: Orders Comprehensive [place]. Panel Fast 11/21/24 I10 - Essential (primary) hypertension Lipid Panel 11/21/24 E78.00 - Pure hypercholesterolemia, unspecified Microalbumin, Random (w Creat) 11/21/24 I10 - Essential (primary) hypertension Complete Blood Count no Diff 11/21/24 I10 - Essential (primary) hypertension Referrals Ear/Nose/Throat Referral J32.1 - Chronic frontal sinusitis Gastroenterology Referral D12.6 - Benign neoplasm of colon, unspecified Medications: New ipratropium-albuterol 0.5 mg-3 mg(2.5 mg base)/3 mL 3 mL inhalation Q6-8H PRN 180 mL 0RF wheezing 30 days J45.41 - Moderate persistent asthma with (acute) exacerbation albuterol sulfate 90 mcg/actuation 2 inhalations inhalation Q6H 1 ea 3RF shortness of breath or wheezing 30 days J45.41 - Moderate persistent asthma with (acute) exacerbation Refilled fluticasone propion-salmeterol 500-50 mcg/dose 1 ea PO BID 60 caps 3RF 30 days J45.41 - Moderate persistent asthma with (acute) exacerbation
--- OUTSIDE RECORDS SUMMARY | 2024-11-21 16:06 | XMS_ITS | Data Portability ---
Author Organization [place] [facility], Allergy Address [address] [address] Care Team Providers Care Bulk Receiver Name Role Phone MACARIO SCHWARZ Primary Care Provider MACARIO SCHWARZ Referring Provider [phone] Assessment Encounter Date Assessment Date Assessment LastModified [...] significant history with noise exposure. 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 [email or web address] Not Available 06/2023 08:55:29 01/21/20 24 audio gram No observ ation record ed. [email or web address] Not Available 12/31 16:06:21 Result Notes None recorded. Problems Name Problem SNOMED Code Status Onset Date Resolution Date Notes Provider Name and Address Organization Details Recorded Time Muscle spasm of cervical muscle of neck 282256916821 Active 2023 DEBBY LEWIS MD 100 [facility], [address], [place], [address], [facility] - [facility] 4 16:12:46 Finding of sensation of musculoskel etal structure of neck 251328482 Active 2023 DEBBY LEWIS MD 100 [facility], [address], [place], [address], [facility] - [facility] [place] 4 16:12:52 Sensorineur al hearing loss of bilateral ears 277698887 Active 2023 Elizabeth harman [place] - [facility] 4 16:32:32 Problem Notes None recorded. Procedures Surgical History Date Name Laterality Status Provider Name and Address Organization Details Recorded Time Comp Audio with Tymps - 24239 & 70018 completed Elizabeth Jaramillo [place] - [facility] 01/20/2024 16:32:18 total replacement of hip completed Isaac Tejeda [place] - [facility] 01/20/2024 16:01:19 Imaging Results None recorded. Procedure [...] Updated DateTime 01/20/2024 165.1 cm 32.4 kg/m2 90474.51 g Isaac Tejeda [place] [facility] 01/20/2024 16:05:05 Social History None recorded. Functional Status None recorded. Mental Status None recorded. Family History Nothing Reported. Medical History Condition Response Hypertension Y Past Encounters Encounter ID Performer Location Encounter Start Date Encounter Closed Date Diagnosis/Indication Diagnosis SNOMED-CT Code Diagnosis ICD10 Code Diagnosis Note [id number] DEBBY DORMAN MD [facility] [address] [address] 01/20/2024 15:38:41 01/20/2024 16:43:19 Finding of sensation of musculoskeletal structure of neck 367378536 M54.2 Muscle spa sm of cervical muscle of neck 5125755637 04 M62.838 Sensorineu ral hearing loss of bilateral ears 680572157 H90.3 Audiologic al evaluation results: Right ear: [...] [place] Member ID Guarantor Name 07/14/2024 1 ESMER-[place]: [facility] [id number] Sharon Johnson [id number] 44 Christoph Styles Notes Date Note Type Note Provider Name [...] CT of the neck with contrast at [facility]. The report is normal. He points to an area between the trapezius and the occipital muscles. Otherwise he is doing wellNo eating, drinking or swallowing issues He notes HL and some difficulty in background situations. NO tinnitus DEBBY MARLOW MD [address] [place] [address], [place], [address], [place] - [facility] 01/20/2024 16:47:25
== END 2024-11-21 15:17 | disposition home or self-care (01) ==
LOC: HO.HMCH 14:34
PROVIDERS: PCP Physician Assistant; Visit Provider Physician Assistant
DX: Z00.00 Encounter for general adult medical examination without abnormal findings (principal); J32.1 Chronic frontal sinusitis; E66.811 Obesity, class 1; Z68.34 Body mass index [BMI] 34.0-34.9, adult; E78.00 Pure hypercholesterolemia, unspecified; D12.6 Benign neoplasm of colon, unspecified; J45.41 Moderate persistent asthma with (acute) exacerbation

== ENCOUNTER → 2024-11-21 14:34 | Outpatient (BNVA) | payer BC, SELFPAY | PROVIDERS: PCP Physician Assistant; Visit Provider Physician Assistant | DX: Z00.00 Encounter for general adult medical examination without abnormal findings (principal); J45.909 Unspecified asthma, uncomplicated; I10 Essential (primary) hypertension; E78.5 Hyperlipidemia, unspecified; E66.811 Obesity, class 1; J32.1 Chronic frontal sinusitis; E78.00 Pure hypercholesterolemia, unspecified; D12.6 Benign neoplasm of colon, unspecified; J45.41 Moderate persistent asthma with (acute) exacerbation; Z68.34 Body mass index [BMI] 34.0-34.9, adult | CPT/HCPCS: 96127; 96160 ==

== ENCOUNTER 2025-03-20 14:26 | Outpatient (AMB) | payer BC, SELFPAY ==
--- NOTE | 2025-03-20 14:31 | A.OFFVIS_ITS ---
Vital Signs 03/20/25 14:50 Height 5 ft 5 in Weight 212 lb BMI 35.3 BP 154/104 H Blood Pressure Location Rt brachial Position Sitting Pulse 70 Pulse Source Pulse Oximeter Pulse Oximetry (%) 95 Oxygen Delivery Method Room Air Intake Visit Reasons: Colonoscopy Screening Intake Note: Returning pt for recall colo screening. Last 2019 w/ Dr. Kam CC: Pt denies any GI sx or concerns at this time. Pt does report that he is not taking his HTN Rx on a regular basis as he was not sure he needed it. Pt takes his BP at home and states it is WNL on average. Pt does have elevated BP per possible white coat syndrome . 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 male with past medical history of hypertension, asthma, obesity, transaminitis, cervical myopathy, hyperlipidemia, history of tubular adenoma, history of total right hip replacements, sciatic, is here today for pre colonoscopy screening.? Patient was sent to us by his PCP. Last colonoscopy 2019, history of tubular adenoma.? Patient denies any gastrointestinal symptoms in the past or at present.? Denies family history of CRC.? Denies history of difficulty with sedation or anesthesia in the past.? Negative for history of sleep apnea.? Denies any history of cardiac, renal, pulmonary, or hepatic disease.? However patient was found to have transaminitis. Ultrasound showed increased echogenicity of the liver. No history of infectious? diseases like hepatitis A, B, C, HIV or tuberculosis.? Patient is not on any anticoagulation [facility] Medical History Arthritis History of back pain Hip arthritis Lumbar back pain Hypertension Asthma Surgical History History of amputation of finger of left hand Hx of colonoscopy History of rectal polypectomy History of left hip replacement Family History Father Prostate cancer Mother No problems noted. Sister Melanoma Metastasis to brain Social History Household Members: Other Household Members Other:: girlfriend Housing: House Are you a primary inpatient care manager rn to a significant other at home: No Do you presently have visiting nurse or other home services: No Alcohol intake: current Alcohol intake frequency: 0-2 drinks per day Alcohol type: beer Comment: resting in bed, eyes closed Patient Tobacco Use Status: Never used Tobacco e-Cigarette/Vaping Use: Never Used service: No Current occupational status: employed Current occupation: [employer] Cognitive needs: No Hearing needs: No Vision needs: No Review of Systems Const Denies weight gain and Denies weight loss ENT Reports no additional complaints, Denies dysphagia and Denies odynophagia Card Reports no additional complaints Resp Reports no additional complaints GI Denies abdominal pain, Denies belching, Denies melena, Denies bloating, Denies change in bowel habits, Denies dysphagia, Denies excessive flatus, Denies dyspepsia, Denies heartburn, Denies diarrhea, Denies loose stools, Denies nausea, Denies odynophagia and Denies vomiting Reports no additional complaints Musc Reports no additional complaints Neuro Reports no additional complaints Psych Reports no additional complaints Endo Reports no additional complaints Physical Exam Vital Signs: Last Vital Signs Pulse 70 03/20/25 14:50 BP 154/104 H 03/20/25 14:50 Pulse Ox 95 03/20/25 14:50 Oxygen Delivery Method Room Air 03/20/25 14:50 BMI result Body Mass Index 35.3 Const General: healthy appearing, no acute distress and well developed Nutritional Appearance: well nourished Orientation/consciousness: patient oriented x3 Resp Effort & Inspection: normal respiratory effort, able to speak in complete sentences, no tracheal deviation and symmetric chest movement Auscultation: clear to auscultation bilaterally Cardio Rate: regular rate GI Inspection: Yes normal to inspection and No distended Palpation (GI): Soft to palpation, not firm, nontender and No hepatosplenomegaly present Auscultation: normal bowel sounds General: Yes no CVA tenderness Back/Spine/Pelvis Back: no CVA tenderness Skin General skin exam: elasticity normal, turgor normal and dry skin Neuro General: patient oriented x3 Psych Appearance: grossly normal Mental Status: mental status grossly normal Results Reviewed Results Reviewed: Laboratory Tests 12/21/23 11/19/24 15:41 09:45 AST 61 H 46 H ALT 88 H 70 H Alkaline Phosphatase 47 44 Triglycerides 164 H Cholesterol 238 H LDL Cholesterol, Calc 157 H ABDOMINAL ULTRASOUND IMPRESSION: 1. Increased hepatic parenchymal heterogeneity and echogenicity could be associated with hepatocellular disease/hepatic steatosis and substantially limits visualization. Hypoechoic areas in the right hepatic lobe adjacent to the gallbladder are characteristic of focal sparing within a fatty liver. Correlation with liver function tests and clinical exam recommended to determine further management. 2. Multiple tiny renal echogenic foci may represent vascular calcifications, artifact or tiny nonobstructive renal calculi. No hydronephrosis. Limited visualization. 3. Possible focal areas of increased diameter of the [id number]-[id number] portion of the abdominal aorta, difficult to evaluate due to limited visualization, measuring up to 2.9 cm in AP dimension. Dedicated CT scan recommended for further evaluation. Assessment & Plan Assessment & Plan (1) Elevated liver enzymes: Code(s): R74.8 - Abnormal levels of other serum enzymes Category: Medical (2) Tubular adenoma of colon: Code(s): D12.6 - Benign neoplasm of colon, unspecified Category: Medical (3) Screen for colon cancer: Code(s): Z12.11 - Encounter for screening for malignant neoplasm of colon Plan Patient denies any GI, cardiac or respiratory symptoms.? Denies any issues with anesthesia in the past.? Denies any history of sleep apnea.? No history infectious diseases in the past or present.? Not on any anticoagulation therapy.? No family history of colon cancer.? Patient denies melena, hematochezia, unintentional weight loss or ribbon like stools.? History of transaminitis will order repeat of liver panel with liver fibrosis. Will check ultrasound with elastography. Discussed at length the pre-procedure,? prep, diet & medications as well as what to expect prior, during and after the procedure.?? Stressed the importance of good bowel prep.? Recommended the use of Vaseline or Calmoseptine OTC & baby wipes with bowel movements to promote comfort.? ?Patient verbalizes understanding and agrees to plan of care.? He was given the opportunity to ask questions and all questions answered.? We will see him after the procedure.? Orders: Orders Liver Panel 03/20/25 R74.01 - Elevation of levels of liver transaminase levels Liver Fibrosis Pnl 03/20/25 K76.0 - Fatty (change of) liver, not elsewhere classified US abdomen canales w elastography 03/20/25 K76.0 - Fatty (change of) liver, not elsewhere classified Referrals GI Procedure Notification Z12.11 - Encounter for screening for malignant neoplasm of colon Medications: New bisacodyl (Dulcolax (bisacodyl)) take 4 tabs at noon the day before your colonoscopy 20 mg (4 x 5 mg) PO ONCE 4 tabs 0RF constipation 1 day Z12.11 - Encounter for screening for malignant neoplasm of colon polyethylene glycol 3350 (Miralax) As directed by gastroenterology department at [facility] 238 grams PO ONCE 238 grams 0RF Z12.11 - Encounter for screening for malignant neoplasm of colon Coding Level of Care Code New Pt Level 4 (96102) Diagnoses Elevated liver enzymes R74.8 Tubular adenoma of colon D12.6 Screen for colon cancer Z12.11 Time Spent (min) 50 Comment 35 minutes spent with patient and additional 15 minutes spent reviewing his records
[2025-03-20 14:50] VITALS: BP 154/104; PULSE 70; O2SAT 95; BMI 35.3
--- OUTSIDE RECORDS SUMMARY | 2025-03-20 18:11 | XMS_ITS | Clinical Summary ---
Author Organization [facility] Address [address] [place] [address] Care Team Providers Care Dial Buffer Name Role Phone Unavailable Primary Care Provider Unavailabl e Social History Tobacco Use Types Packs/Day Years Used Date Smoking Tobacco: Never Assessed Sex and Gender Information Value Date Recorded Sex Assigned at Not on file Legal Sex Male 1:00 PM EDT Gender Identity Not on file Sexual Orientation Not on file Plan of Treatment Health Maintenance Due Date Last Done Comments Hepatitis C Virus Screening 1960 HIV Screening 1973 DTaP/Tdap/Td Vaccines (1 - Tdap) 1979 Pneumococcal Vaccines 50+ (1 of 1 - PCV) 2010 Zoster (Shingles) Vaccine (1 of 2) 2010 COVID-19 Vaccine ( - 2023-2 5 season) 2025 RSV Vaccine 50 years and old er and Patients (1 - 1-dose 75+ series) 2035 Hepatitis B Vaccines Aged Out No long er eligible based on patient's age to complete this topic
--- OUTSIDE RECORDS SUMMARY | 2025-03-20 18:11 | XMS_ITS ---
Author Name [facility] Organization Unknown Problems Problem Status Onset Date Problem Type Date of Resoluti on Source Chronic frontal sinusitis active [facility]
== END 2025-03-20 15:20 | disposition home or self-care (01) ==
LOC: HO.HGI 14:27
PROVIDERS: PCP Physician Assistant; Visit Provider Nurse Practitioner Family
DX: Z01.818 Encounter for other preprocedural examination (principal); Z12.11 Encounter for screening for malignant neoplasm of colon; Z86.0101 Personal history of adenomatous and serrated colon polyps; R74.8 Abnormal levels of other serum enzymes
CPT/HCPCS: S0285

== ENCOUNTER 2025-05-22 15:02 | Outpatient (AMB) | payer BC, SELFPAY ==
[2025-05-22 15:10] VITALS: BP 154/88; PULSE 89; RESP 20; TEMP 36.7; O2SAT 95; BMI 33.9
--- NOTE | 2025-05-22 15:10 | A.OFFPC_ITS ---
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 Required: No Accompanied by: Self / Same As Patient Allergies No Known Allergies (No Known Allergies*) Allergy (Verified 05/22/25 15:30) Medication List - Last Reconciled 05/22/25 by Shane Mcnair PA-C acetaminophen 650 mg (2 x 325 mg) PO Q6H 30 days albuterol sulfate 90 mcg/actuation 2 inhalations inhalation Q6H 30 days bisacodyl (Dulcolax (bisacodyl)) 20 mg (4 x 5 mg) PO ONCE 1 day fluticasone propion-salmeterol 500-50 mcg/dose 1 ea PO BID 30 days ipratropium-albuterol 0.5 mg-3 mg(2.5 mg base)/3 mL 3 mL inhalation Q6-8H PRN 30 days lisinopril 10 mg PO DAILY 90 days miscellaneous medical supply (Blood Pressure Cuff) As directed polyethylene glycol 3350 (Miralax) 238 grams PO ONCE triamcinolone acetonide 0.5% 1 appl topical DAILY 15 days Tobacco use date assessed: 05/22/25 Fall risk assessment: No Falls in past year Last assessed Fall Risk: 05/22/25 Dental Screening Dental Screen Date: 05/22/25 Did you have a dental visit in the last 12 months?: Yes Did you have a dental problem in the last 6 months where you did not have access to dental care?: No Was dental information given to patient?: Patient has dentist HPI 3 MO f/u HTN/ HLD HPI Details Patient is a 65-year-old male here today for a follow-up visit .? Patient has a past medical history si gnificant for hypertension, asthma. .. Asthma : has been stable with currently GUSTAVO inhaler( requesting powder formulation) , he also does use DuoNeb in his nebulizer at home which significantly reduced his shortness of breath and wheeze at times.. also uses maintenance inhaler on a daily basis.? Denies any acute exacerbations of his asthma. .. HTN : Patient's blood pressures elevated today in office, at home he monitors his blood pressure to which he gets 110s to 120 systolic. He believes he has a white coat hypertension . He has not been very consistent with using lisinopril. Denies any chest discomfort, shortness of breath, headaches. .. Hyperlipidemia: Patient's most recent lipid panel showing elevated total cholesterol and LDL. He is not interested in starting cholesterol medication at this time and will like to continue working on lifestyle and dietary modifications. Has been dietary changes to reduce high cholesterol foods in his diet. .. Class 1 Obesity: He has lost a few lb since last office visit, he reports being more physically active and being mindful about his diet lately. He will work on being more physically active and adapting to better eating habits to reduce his weight Laboratory Tests 12/21/23 11/19/24 11/19/24 15:41 09:42 09:45 RBC 5.02 Creatinine 0.88 AST 61 H 46 H ALT 88 H 70 H Cholesterol 215 H 238 H LDL Cholesterol, C alc 140 H 157 H PSA Screen 2.71 Urine Microalbumin 7.0 PFSH Medical History Arthritis History of back pain Hip arthritis Lumbar back pain Hypertension Asthma Surgical History History of amputation of finger of left hand Hx of colonoscopy History of rectal polypectomy History of left hip replacement Family History Father Prostate cancer Mother No problems noted. Sister Melanoma Metastasis to brain Social History Household Members: Other Household Members Other:: girlfriend Housing: House Are you a primary healthcare associate to a significant other at home: No Do you presently have visiting nurse or other home services: No Alcohol intake: current Alcohol intake frequency: 0-2 drinks per day Alcohol type: beer Comment: resting in bed, eyes closed Patient Tobacco Use Status: Never used Tobacco e-Cigarette/Vaping Use: Never Used service: No Current occupational status: employed Current occupation: [employer] Cognitive needs: No Hearing needs: No Vision needs: No Questionnaire PHQ-9 Over the last 2 weeks, how often have you been bothered by any of the following problems? 1. Little interest or pleasure in doing things: not at all 2. Feeling down, depressed, or hopeless: not at all 3. Trouble falling or staying asleep, or sleeping too much: not at all 4. Feeling tired or having little energy: not at all 5. Poor appetite or overeating: not at all 6. Feeling bad about yourself - or that you are a failure or have let yourself or your family down: not at all 7. Trouble concentrating on things, such as reading the newspaper or watching television: not at all 8. Moving or speaking so slowly that other people could have noticed. Or the opposite - being so fidgety or restless that you have been moving around a lot more than usual: not at all 9. Thoughts that you would be better off or of hurting yourself in some wa y: not at all Total score: 0 Depression Screening Interpretation: Negative Depression Screening Done: Yes 43913 - PHQ-9 Billing: Patient declined-do not bill Source: Developed by Drs. Kurtis Joseph, Aundrea Quiroz, Gama Santos and colleagues, with an educational shayy from [employer]. Thrive Questionnaire Date Thrive assessed: 05/22/25 I am a: Patient What is your living situation today?: I have a steady place to live Within the past 12 months, did the food you bought not last and you didn't have the money to get more?: Never true Within the past 12 months, did you worry whether your food would run out before you got money to buy more?: Never true Do you have trouble paying for medicines?: No Do you have trouble getting transportation to medical appointments?: No Do you have trouble paying your heating and electricity bill?: No Do you have trouble taking care of your child, family member or friend?: Yes Do you have trouble with day-to-day activities such as bathing, preparing meals, shopping, managing finances, etc.?: No Are you currently unemployed and looking for a job?: No Are you interested in more education?: No Please select the resources that you would like help with: None Currently or been in a relationship where the following occur: No concerns reported THRIVE Score: 0 AUDIT C Alcohol Use Questionnaire (AUDIT-C) 1. How often do you have a drink containing alcohol?: 2-3 times a week 2. How many drinks containing alcohol do you have on a typical day when you are drinking?: 1 or 2 3. How often do you have six or more drinks on one occasion?: Never Total Score: 3 JAC-7 AMB Questionnaire JAC-7 Date JAC - 7 assessed: 05/22/25 Feeling nervous, anxious, or on edge: 0 = Not at all Not being able to stop or control worryin = Not at all Worrying too much about different things: 0 = Not at all Trouble relaxin = Not at all Being so restless that it is hard to sit still: 0 = Not at all Becoming easily annoyed or irritable: 0 = Not at all Feeling afraid as if something awful might happen: 0 = Not at all Total JAC-7 score (0-4 normal; 5-9 mild; 10-14 moderate; 15-21 severe): 0 Source: Developed by Drs. Kurtis Joseph, Aundrea Quiroz, Gama Santos and colleagues, with an educational shayy from [employer]. JAC-7 Assessment Billing JAC-7 Assessment Tool: JAC-7 Assessment 32474 Review of Systems Const Denies headache(s) Eyes Denies loss of vision ENT Denies vertigo, Denies dizziness, Denies headache(s) and Denies sore throat Card Denies chest pain, Denies leg edema and Denies lightheadedness Resp Denies cough, Denies hemoptysis and Denies wheezing GI Denies abdominal pain, Denies melena, Denies constipation, Denies diarrhea and Denies vomiting Denies dysuria, Denies urinary frequency and Denies urinary urgency Musc Denies arthralgias, Denies joint swelling, Denies numbness and Denies tingling Neuro Denies Abnormal speech present, Denies behavioral changes, Denies vertigo, Denies dizziness, Denies headache(s), Denies loss of vision, Denies memory loss, Denies numbness and Denies tingling Psych Denies anxiety, Denies behavioral changes, Denies depression, Denies memory loss and Denies panic attacks Jt/Lymph Denies easy bleeding and Denies easy bruising Aller/Immun Denies wheezing Physical exam (Primary Care) Vital Signs: Last Vital Signs Temp 98.0 F 05/22/25 15:10 Pulse 89 05/22/25 15:10 Resp 20 05/22/25 15:10 BP 154/88 H 05/22/25 15:10 Pulse Ox 95 05/22/25 15:10 Oxygen Delivery Method Room Air 05/22/25 15:10 BMI result Body Mass Index 33.9 Tobacco/Smoking Status: Tobacco use Status Tobacco use date assessed 05/22/25 05/22/25 15:12 Patient Tobacco Use Status Never used Tobacco 05/22/25 15:12 e-Cigarette/Vaping Use Never Used 05/22/25 15:12 PHQ-9: PHQ-9 Score PHQ-9: Total score 0 05/22/25 15:37 Depression Screening Interpretation: Negative Thrive Assessment: Date of Thrive Assessment Date Thrive assessed 05/22/25 05/22/25 15:12 Currently or been in a relationship where the following occur: No concerns reported Const General: healthy appearing, no acute distress, alert and awake Nutritional Appearance: well nourished Orientation/consciousness: oriented to person, oriented to place and oriented to time HENMT Ears: TM's normal bilaterally General nose exam: Normal nasal mucous membranes and turbinates present Eyes Conjunctivae: conjunctivae normal Sclerae: sclerae normal Pupils: Equal, round and reactive pupils present Neck Neck: Yes no lymphadenopathy and Yes no JVD Thyroid: Thyroid normal Carotids: no bruits Resp Effort & Inspection: normal respiratory effort and not tachypneic Auscultation: no crackles, no rales, no rhonchi and no wheezes Cardio Rate: regular rate Rhythm: regular rhythm Heart sounds: no murmurs and normal S1 and S2 GI Palpation (GI): Soft to palpation, nontender, no hepatomegaly and no splenomegaly Auscultation: normal bowel sounds Skin General skin exam: no rashes or lesions noted and dry skin Neuro General: oriented to person, oriented to place and oriented to time Cranial nerves: Yes Equal, round and reactive pupils present Speech: No Abnormal speech present Gait exam (Neuro): Normal gait present Motor exam (neuro): no tremor noted Extrem Right upper extremity: full ROM Left upper extremity: full ROM Right lower extremity: full ROM; no edema Left lower extremity: full ROM; no edema Psych Mental Status: mental status grossly normal Speech and movement: Normal speech and movement present Affect: normal affect Attitude: cooperative Thought process: Normal thought process present Coding Level of Care Code Est Pt Level 4 (20184) Diagnoses Pure hypercholesterolemia E78.00 Hyperlipidemia type: pure hypercholesterolemia Tubular adenoma of colon D12.6 Moderate persistent asthma with acute exacerbation J45.41 Asthma complication type: with acute exacerbation Asthma persistence: persistent Asthma severity: moderate Class 1 obesity E66.811 Essential hypertension I10 Hypertension type: essential hypertension Additional Codes JAC-7 Assessment Billing - JAC-7 Assessment Tool: JAC-7 Assessment 19871 ([id number]) Assessment & Plan Assessment & Plan (1) HLD (hyperlipidemia): Code(s): E78.5 - Hyperlipidemia, unspecified Category: Medical Qualifiers: Hyperlipidemia type: pure hypercholesterolemia Qualified Code(s): E78.00 - Pure hypercholesterolemia, unspecified Plan: Patient continues to have elevated total cholesterol and LDL. He works on lifestyle and dietary modifications at this time. Advised on starting low-dose statin therapy to reduce his cardiovascular risk though he declines at this time. Goal LDL to be below 130 (2) Tubular adenoma of colon: Code(s): D12.6 - Benign neoplasm of colon, unspecified Category: Medical Plan: Patient has a history of colon polyps in 2019, needs repeat colonoscopy (3) Asthma: Code(s): J45.909 - Unspecified asthma, uncomplicated Category: Medical Qualifiers: Asthma complication type: with acute exacerbation Asthma persistence: persistent Asthma severity: moderate Qualified Code(s): J45.41 - Moderate persistent asthma with (acute) exacerbation Plan: Patient reports his asthma is fairly well controlled. He does report his asthma does act up during very cold or very high weather. He requests the powder formulation of rescue inhaler albuterol.. He does have nebulizer at home he uses a DuoNeb solution for which does reduce a lot of his shortness of breath and wheeze. (4) Class 1 obesity: Code(s): E66.811 - Obesity, class 1 Category: Medical Plan: Patient does understand his BMI is over 30 will continue working on being more physically active and adapting to better eating habits to reduce his weight (5) Hypertension: Comment: Dx 07/2019 Code(s): I10 - Essential (primary) hypertension Category: Medical Qualifiers: Hypertension type: essential hypertension Qualified Code(s): I10 - Essential (primary) hypertension Plan: Patient's blood pressure elevated today in office. He reports at home blood pressures are usually 110s systolic. He believes he has been quite hypertension. He is not to consistent with the use of lisinopril 10 mg and advised to be more consistent with the use of this medication. He otherwise denies any chest pain, headaches vision issues or palpitations. Advised on monitoring blood pressure more closely with the goal blood pressure to be below 140/90 Medications: Refilled albuterol sulfate 90 mcg/actuation 2 inhalations inhalation Q6H 1 ea 3RF shortness of breath or wheezing 30 days J45.41 - Moderate persistent asthma with (acute) exacerbation triamcinolone acetonide 0.5% 1 appl topical DAILY 15 grams 0RF 15 days L30.9 - Dermatitis, unspecified lisinopril 10 mg PO DAILY 90 tabs 1RF 90 days I10 - Essential (primary) hypertension
--- OUTSIDE RECORDS SUMMARY | 2025-05-22 18:18 | XMS_ITS | Data Portability ---
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 [email or web address] Not Available 06/2023 08:55:29 01/21/20 24 audio gram No observ ation record ed. Not Available 12/31 16:06:21 Result Notes None recorded. Problems Name Problem SNOMED Code Status Onset Date Resolution Date Notes Provider Name and Address Organization Details Recorded Time Muscle spasm of cervical muscle of neck 174739739185 Active 2023 DEBBY LEWIS MD [address] [facility], [place], [phone], [facility] [place] 4 16:12:46 Finding of sensation of musculoskel etal structure of neck 291376066 Active 2023 DEBBY LEWIS MD [address] [facility], [place], [phone], [facility] - [facility] [place] 4 16:12:52 Sensorineur al hearing loss of bilateral ears 187967412 Active 2023 Elizabeth harman [place] - [facility] 4 16:32:32 Problem Notes None recorded. Procedures Surgical History Date Name Laterality Status Provider Name and Address Organization Details Recorded Time Comp Audio with Tymps - 97401 & 26557 completed Elizabeth Jaramillo [place] - [facility] 01/20/2024 16:32:18 total replacement of hip completed Isaac Tejeda [place] - [facility] 01/20/2024 16:01:19 Imaging Results None recorded. Procedure [...] Updated DateTime 01/20/2024 165.1 cm 32.4 kg/m2 61162.51 g Isaac Tejeda [place] [facility] 01/20/2024 16:05:05 Social History None recorded. Functional Status None recorded. Mental Status None recorded. Family History Nothing Reported. Medical History Condition Response Hypertension Y Past Encounters Encounter ID Performer Location Encounter Start Date Encounter Closed Date Diagnosis/Indication Diagnosis SNOMED-CT Code Diagnosis ICD10 Code Diagnosis IMO Codes Diagnosis Note [id number] DEBBY DORMAN MD [facility] [address] [address] 01/20/2024 15:38:41 01/20/2024 16:43:19 Finding of sensation of musculoskeletal structure of neck 322676832 M54.2 Muscle spa sm of cervical muscle of neck 1263982911 04 M62.838 Sensorineu ral hearing loss of bilateral ears 697145539 H90.3 Audiologic al evaluation results: Right ear: [...] Member ID [place] Member ID Guarantor Name 12/19/[address] [facility] [id number] Sharon Johnson [id number] Christoph FlowersHeureux 02/06/2025 PAYMENT PLAN Christoph Styles Notes Date Note Type Note [...] CT of the neck with contrast at [facility]. The report is normal. He points to an area between the trapezius and the occipital muscles. Otherwise he is doing wellNo eating, drinking or swallowing issues He notes HL and some difficulty in background situations. NO tinnitus DEBBY MARLOW MD [address] [place] [address], [phone], [facility] - [facility] 01/20/2024 16:47:25
== END 2025-05-22 16:02 | disposition home or self-care (01) ==
LOC: HO.HMCH 15:03
PROVIDERS: PCP Physician Assistant; Visit Provider Physician Assistant
DX: E78.00 Pure hypercholesterolemia, unspecified (principal); D12.6 Benign neoplasm of colon, unspecified; J45.41 Moderate persistent asthma with (acute) exacerbation; E66.811 Obesity, class 1; I10 Essential (primary) hypertension

== ENCOUNTER → 2025-05-22 15:02 | Outpatient (BNVA) | payer BC, SELFPAY | PROVIDERS: PCP Physician Assistant; Visit Provider Physician Assistant | DX: Z13.31 Encounter for screening for depression (principal); Z13.39 Encounter for screening examination for other mental health and behavioral disorders | CPT/HCPCS: 96127 ==